=== PATIENT | female | born 2000 | race Caucasian/White ===

== ENCOUNTER 2022-02-27 16:16 | Emergency (ER) | payer OTHER, SELFPAY ==
[2022-02-27 16:30] VITALS: BP 148/74; PULSE 119; RESP 16; TEMP 37.1; O2SAT 97; BMI 38.0
[2022-02-27 16:57] VITALS: BP 131/72; PULSE 117; RESP 16; O2SAT 100
[2022-02-27] MEDS: KETOROLAC 30 MG/ML VIAL 15 MG IM (17:14)
--- NOTE | 2022-02-27 17:15 | ED.PEDHENT ---
HPI - Pediatric HENT <JAMIE Patten - Last Filed: 02/28/22 14:31> General Chief complaint: Upper Respiratory Symptoms Stated complaint: bumps on back of neck, states fever Time Seen by Provider: 02/27/22 16:57 Source: patient Mode of arrival: Ambulatory History of Present Illness HPI Narrative: This is a 21-year-old female who presents to the emergency department with her mother with concern for strep throat with fever. Patient states that she has a history of strep throat in the past, states that one month ago she had it and was encouraged to try salt water rinses and go to the emergency department if she develops a fever. She developed a fever today of 102F. She denies any nausea, vomiting, dysuria, abdominal pain, or any other symptom. She states that her symptoms fully resolved over the last month, and her sore throat started yesterday. Patient states that she took a COVID test this morning and was negative. She denies any shortness of breath, cough, ear pain, runny nose, or any other symptoms. She states that she is had multiple strep throat infections in the past. She sees a primary care provider on the [employer] [address] [employer] [place] and does not know their name. Related Data Previous Rx's Medication Instructions Recorded benzocaine 15 mg-menthol 3.6 mg 1 wayne mucous membrane Q2-4H PRN 02/27/22 lozenges (Cepacol Sore Throat sore throat #16 ea (benzocaine-menthol)) Allergies Allergy/AdvReac Type Severity Reaction Status Date / Time No Known Drug Allergies Allergy Verified 02/27/22 16:35 Patient History <JAMIE Patten - Last Filed: 02/28/22 14:31> Social History Smoking Status: Never smoker Smoking Status: Never smoker alcohol intake frequency: 0-2 drinks per day Substance Use Type: does not use Pediatric Exam <JAMIE Patten - Last Filed: 02/28/22 14:31> Narrative Physical exam: Independently reviewed vitals signs and nursing notes. General: cooperative, comfortable, in no acute distress, well groomed Head: atraumatic, symmetrical facial expressions Neck: supple Eyes: equal round and reactive, EOMI, conjunctiva normal Nose: nares patent, no rhinorrhea Mouth/Throat: moist mucus membranes, posterior pharynx with significant tonsillar adenopathy, 2- 3+, exudates present, erythematous posterior pharynx Cardiovascular: Tachycardic rate and rhythm, patient is febrile, no peripheral edema, warm extremities Respiratory: normal effort, able to speak in complete sentences, no audible wheezing, stridor, or rales. No retractions or tachypnea. GI: abdomen soft, nontender to palpation, nondistended, no masses, no exquisite tenderness with exam, without guarding or rebound. MSK: moves all extremities, neurovascularly intact, no weakness, normal tone Skin: brisk capillary refill, no rash, no erythema Neuro: normal speech and cognition, A&O x3 Psych: mental status is grossly normal, congruent mood, normal affect, pleasant and cooperative Initial Vital Signs Initial Vital Signs: Vital Signs Temperature 98.7 F 02/27/22 16:30 Pulse Rate 119 H 02/27/22 16:30 Respiratory Rate 16 02/27/22 16:30 Blood Pressure 148/74 H 02/27/22 16:30 Pulse Oximetry 97 02/27/22 16:30 Oxygen Delivery Method 02/27/22 16:30 General Limitations: no limitations <Mayur Gtz DO - Last Filed: 02/28/22 18:22> Initial Vital Signs Initial Vital Signs: Vital Signs Temperature 98.7 F 02/27/22 16:30 Pulse Rate 119 H 02/27/22 16:30 Respiratory Rate 16 02/27/22 16:30 Blood Pressure 148/74 H 02/27/22 16:30 Pulse Oximetry 97 02/27/22 16:30 Oxygen Delivery Method 02/27/22 16:30 Course <JAMIE Patten - Last Filed: 02/28/22 14:31> Orders Ordered: Discontinued Medications Acetaminophen (Acetaminophen Susp 650 Mg/20.3 Ml Udc) 650 mg PO NOW ONE Stop: 02/27/22 17:07 Last Admin: 02/27/22 17:18 Dose: 650 mg Documented By: NR Dexamethasone (Dexamethasone 10 Mg/Ml Vial) 10 mg PO NOW ONE Stop: 02/27/22 17:07 Last Admin: 02/27/22 17:19 Dose: 10 mg Documented By: NR Ketorolac Tromethamine (Ketorolac 30 Mg/Ml Vial) 15 mg IM NOW ONE Stop: 02/27/22 17:07 Last Admin: 02/27/22 17:14 Dose: 15 mg Documented By: NR Penicillin G Benzathine (Penicillin G Benzathine 1,200,000 Unit/2 Ml Syringe) 1,200,000 unit IM NOW ONE Stop: 02/27/22 17:07 Last Admin: 02/27/22 17:20 Dose: 1,200,000 unit Documented By: NR Vital Signs Vital signs: Vital Signs - 8 hr 02/27/22 16:30 02/27/22 16:57 02/27/22 17:24 Temperature 98.7 F Pulse Rate 119 H 117 H 110 H Respiratory Rate 16 16 18 Blood Pressure 148/74 H 131/72 116/65 Pulse Oximetry 97 100 100 Oxygen Delivery Method Room Air Room Air <Mayur Gtz DO - Last Filed: 02/28/22 18:22> Orders Ordered: Discontinued Medications Acetaminophen (Acetaminophen Susp 650 Mg/20.3 Ml Udc) 650 mg PO NOW ONE Stop: 02/27/22 17:07 Last Admin: 02/27/22 17:18 Dose: 650 mg Documented By: NR Dexamethasone (Dexamethasone 10 Mg/Ml Vial) 10 mg PO NOW ONE Stop: 02/27/22 17:07 Last Admin: 02/27/22 17:19 Dose: 10 mg Documented By: NR Ketorolac Tromethamine (Ketorolac 30 Mg/Ml Vial) 15 mg IM NOW ONE Stop: 02/27/22 17:07 Last Admin: 02/27/22 17:14 Dose: 15 mg Documented By: NR Penicillin G Benzathine (Penicillin G Benzathine 1,200,000 Unit/2 Ml Syringe) 1,200,000 unit IM NOW ONE Stop: 02/27/22 17:07 Last Admin: 02/27/22 17:20 Dose: 1,200,000 unit Documented By: NR Vital Signs Vital signs: Vital Signs - 8 hr 02/27/22 16:30 02/27/22 16:57 02/27/22 17:24 Temperature 98.7 F Pulse Rate 119 H 117 H 110 H Respiratory Rate 16 16 18 Blood Pressure 148/74 H 131/72 116/65 Pulse Oximetry 97 100 100 Oxygen Delivery Method Room Air Room Air Medical Decision Making <Lori Claros, [employer] OPERATOR - Last Filed: 02/28/22 14:31> Lab Data Labs: Lab Results 02/27/22 Range/Units 16:37 SARS-CoV-2 (PCR) Negative (Negative) Point of Care Testing Rapid Strep A Negative Point of care testing: Point of Care Testing Rapid Strep A Negative MDM Narrative Medical decision making narrative: This is a pleasant 21-year-old female presents to the emergency department with concern for strep throat with swelling and pain in her throat for the last 1.5 days and a history of strep throat infections, last one was one month ago. Patient denies any symptoms in between infections, states that she tried gargling salt water and today she developed a fever of 102 F. she denies any difficulty swallowing or breathing, denies any history of mono, denies any significant fatigue, headache, shortness of breath, chest pain, abdominal pain, dysuria, or any other symptoms. Her rapid group a strep test was negative, throat culture was obtained and is pending. Her COVID test this morning and her PCR this afternoon are both negative. This is most likely pharyngitis of a bacterial origin, patient was treated in the emergency department with penicillin G, 1.2 million units, Decadron 10 mg, Toradol, and encouraged to stay hydrated over the next few days. They were given contact information for Dr. Duckworth to follow-up with for future tonsillectomy. They are given strict return precautions, she reports feeling much better, was also given Tylenol in the emergency department. She was febrile when she checked in, she was tolerating p.o., does not have any swallowing difficulties. No stridor. Appropriate Testing for Patients with Pharyngitis x[] The patient has acute pharyngitis/tonsillitis. The patient was prescribed antibiotics today and a strep test or culture was performed. [SATISFIES MIPS PERFORMANCE] Patient is appropriate and amenable to discharge home. Vital signs are stable on repeat examination is unremarkable. Patient has been informed of results. Patient has been given strict return to ER precautions for any new or worsening symptoms. Patient understands to follow up closely with outpatient providers as instructed. Patient understands plan and agrees to discharge home. All questions and concerns answered at this time. <Mayur Gtz DO - Last Filed: 02/28/22 18:22> Lab Data Labs: Lab Results 02/27/22 Range/Units 16:37 SARS-CoV-2 (PCR) Negative (Negative) Point of Care Testing Rapid Strep A Negative Point of care testing: Point of Care Testing Rapid Strep A Negative Discharge Plan Departure Patient Disposition: Home Clinical Impression: Pharyngitis Qualifiers: Pharyngitis/tonsillitis etiology: unspecified etiology Qualified Code(s): J02.9 - Acute pharyngitis, unspecified Instructions: DI for Pharyngitis/Tonsillopharyngitis -- Adult, DI for Strep Throat Activity Restrictions/Additional Instructions: *You have been diagnosed with pharyngitis and tonsillitis, this is likely strep throat of another variation. You can follow-up with Dr. Duckworth [place] are not getting better in the next 2-3 days. We will call you in two days if your antibiotic you received today is not adequate for the bacteria in your throat. We will call youif you are COVID positive, please continue to take ibuprofen every 6 hours /600 mg starting tomorrow with food and water. Please stay hydrated, drink plenty of water, take Tylenol 650 mg in addition to ibuprofen for fever. This antibiotic will fully treat the bacteria in her throat if this is strep. Thank you for trusting us with your care, hope you feel better soon. Please return to the emergency department if you are having difficulty swallowing, not breathing well, worsening swelling, or vomiting. I wish you the best. *What to do: *Please continue to take your regular medications as directed. [x ] New medication prescriptions sent to your pharmacy: [DOD ] [ ] New medication written as a paper prescription [ ] No new medications given *Please follow up with your primary care provider in 2-3 days, call for an appointment. Let them know you were seen in the Emergency Department and that we asked that you be seen for follow-up. We will electronically transmit a record of today's note if your PCP is in our system *If you do not have a primary care provider please contact [phone] to establish care with one of the [facility] primary care providers. *Return to Emergency Department if you should have any new, worsening or concerning symptoms, such as [fever greater than 101F, chills, worsening pain, persistent vomiting or other bothersome symptoms] Prescriptions: New Cepacol Sore Throat (meseret-men) 15-3.6 mg lozenge 1 wayne mucous membrane Q2-4H PRN (Reason: sore throat) Qty: 16 0RF Referrals: Mihir Duckworth MD [Physician] - Visit Report Forms: Patient Portal/API <Mayur Gtz DO - Last Filed: 02/28/22 18:22> Cosign ED Attending Costawandaature Attestation: I was immediately available in the department for consultation. Documentation has been reviewed. I agree with assessment and plan.
[2022-02-27] MEDS: ACETAMINOPHEN SUSP 650 MG/20.3 ML UDC PO (17:18)
[2022-02-27] MEDS: DEXAMETHASONE 10 MG/ML VIAL PO (17:19)
[2022-02-27] MEDS: PENICILLIN G BENZATHINE 1,200,000 UNIT/2 ML SYRINGE 1200000 UNIT IM (17:20)
[2022-02-27 17:23] LABS: COVID19 -Nasal RAPID Negative (Negative)
[2022-02-27 17:24] VITALS: BP 116/65; PULSE 110; RESP 18; O2SAT 100
== END 2022-02-27 17:46 | disposition home or self-care (01) ==
PROVIDERS: Emergency Medicine; Emergency Provider Nurse Practitioner Critical Care Medicine
DX: J02.9 Acute pharyngitis, unspecified (principal); Z20.822 Contact with and (suspected) exposure to COVID-19
CPT/HCPCS: 87070; 87077; 87147; 87635; 87880; 96372; 99283; C9803; J0561; J1100; J1885

== ENCOUNTER 2022-06-21 12:22 | Emergency (ER) | payer OTHER, SELFPAY ==
[2022-06-21] VITALS (11 sets, daily range): BP systolic 110–129; BP diastolic 56–80; PULSE 62–83; RESP 15–18; TEMP 36.8; O2SAT 95–100; BMI 37.2
--- NOTE | 2022-06-21 13:05 | ED_ITS ---
HPI - Female Genitourinary <JAMIE Patten - Last Filed: 06/21/22 15:32> General Chief complaint: Vaginal Bleeding Stated complaint: Unusually Painful Period Time Seen by Provider: 06/21/22 12:39 Source: patient Mode of arrival: Ambulatory History of Present Illness HPI Narrative: This is a 22-year-old female who is not on contraception and presents to the emergency department complaining of unusually painful and heavier menses than typical. States that she has regular periods, her most recent 1 was of April beginning may. She states that is possible she could be , she denies any abnormal vaginal discharge other than heavy menstrual bleeding. She states that it started yesterday and she went through 3 tampons in 1 hour today. She endorses having a runny nose, cough, sore throat for the last 3 days. States that she had diarrhea and vomiting 1 week ago. Has not taken any COVID tests. Primary care provider is on the [employer]. She is COVID vaccinated, states she is not flu vaccinated. She complains of suprapubic cramping primarily central. She denies any bowel changes this week. Related Data Previous Rx's Medication Instructions Recorded cetirizine 10 mg tablet (24Hour 10 mg PO BEDTIME PRN congestion 06/21/22 Allergy) #20 tabs ketorolac 10 mg tablet 10 mg PO TID PRN pain 5 days #20 06/21/22 tabs Allergies Allergy/AdvReac Type Severity Reaction Status Date / Time No Known Drug Allergies Allergy Verified 06/21/22 14:52 Review of Systems <JAMIE Patten - Last Filed: 06/21/22 15:32> Review of Systems Narrative: Review of systems is negative for acute abnormalities unless otherwise noted in HPI Patient History <JAMIE Patten - Last Filed: 06/21/22 15:32> alcohol intake frequency: 0-2 drinks per day Substance Use Type: does not use Exam <JAMIE Patten Last Filed: 06/21/22 15:32> Narrative Exam Narrative: Reviewed vitals signs and nursing notes. General: cooperative, comfortable, elevated BMI of 37, in no acute distress, well groomed HEENT: symmetrical facial expressions, moist mucous membranes Cardiovascular: regular rate and rhythm, no peripheral edema, warm extremities Respiratory: normal effort, able to speak in complete sentences, without wheezing, stridor, or abnormal breath sounds. No retractions or tachypnea. GI: abdomen soft, nontender to palpation, nondistended, without masses, rebound tenderness or exquisite tenderness with exam. Education Adviser: Pelvic exam completed with Naina ELIZABETH as senior software qa engineer, dark red blood with mucus coming out of cervical os without foreign body in the vaginal canal, cervicitis, or other abnormal vaginal discharge, patient had right adnexal tenderness no tenderness over the left MSK: moves all extremities, neurovascularly intact, no weakness, normal tone Skin: brisk capillary refill, without pallor or erythema Neuro: normal speech and cognition, A&O x3, ambulatory, clear speech Psych: mental status is grossly normal, congruent mood, normal affect, pleasant and cooperative Initial Vital Signs Initial Vital Signs: Vital Signs Pulse Rate 75 06/21/22 12:33 Pulse Oximetry 97 06/21/22 12:33 <Urszula Lynn DO - Last Filed: 06/22/22 08:49> Initial Vital Signs Initial Vital Signs: Vital Signs Pulse Rate 75 06/21/22 12:33 Pulse Oximetry 97 06/21/22 12:33 Course <JAMIE Patten - Last Filed: 06/21/22 15:32> Orders Ordered: Discontinued Medications Acetaminophen (Acetaminophen 325 Mg Tablet) 975 mg PO NOW ONE Stop: 06/21/22 12:41 Last Admin: 06/21/22 13:27 Dose: 975 mg Documented By: NR Sodium Chloride (Normal Saline 0.9%) 1,000 mls @ 1,000 mls/hr IV BOLUS ONE Stop: 06/21/22 14:03 Last Infusion: 06/21/22 14:30 Dose: 0 mls/hr Documented By: Admin: 06/21/22 13:27 Dose: 1,000 mls/hr Documented By: NR Ketorolac Tromethamine (Ketorolac 30 Mg/Ml Vial) 15 mg IV NOW ONE Stop: 06/21/22 13:05 Last Admin: 06/21/22 13:27 Dose: 15 mg Documented By: NR Ondansetron HCl (Ondansetron 4 Mg/2 Ml Inj) 4 mg IV NOW ONE Stop: 06/21/22 13:05 Last Admin: 06/21/22 13:27 Dose: 4 mg Documented By: NR Oxycodone HCl (Oxycodone Ir 5 Mg Tablet) 5 mg PO NOW ONE Stop: 06/21/22 15:16 Vital Signs Vital signs: Vital Signs - 8 hr 06/21/22 12:40 06/21/22 12:33 06/21/22 12:34 Temperature 98.3 F Pulse Rate 75 75 73 Respiratory Rate 18 Blood Pressure 129/80 Pulse Oximetry 98 97 98 Oxygen Delivery Method Room Air 06/21/22 12:34 06/21/22 13:00 06/21/22 13:36 Temperature Pulse Rate 71 Respiratory Rate Blood Pressure 129/80 Pulse Oximetry 95 97 Oxygen Delivery Method 06/21/22 13:38 06/21/22 13:38 06/21/22 14:00 Temperature Pulse Rate 62 Respiratory Rate Blood Pressure 115/62 118/70 Pulse Oximetry 97 Oxygen Delivery Method 06/21/22 14:00 06/21/22 14:30 06/21/22 14:44 Temperature Pulse Rate 74 65 83 Respiratory Rate 15 Blood Pressure Pulse Oximetry 100 100 99 Oxygen Delivery Method Room Air 06/21/22 14:47 Temperature Pulse Rate Respiratory Rate Blood Pressure 110/56 L Pulse Oximetry Oxygen Delivery Method <Urszula Lynn, - Last Filed: 06/22/22 08:49> Orders Ordered: Discontinued Medications Acetaminophen (Acetaminophen 325 Mg Tablet) 975 mg PO NOW ONE Stop: 06/21/22 12:41 Last Admin: 06/21/22 13:27 Dose: 975 mg Documented By: DARRYL Sodium Chloride (Normal Saline 0.9%) 1,000 mls @ 1,000 mls/hr IV BOLUS ONE Stop: 06/21/22 14:03 Last Infusion: 06/21/22 14:30 Dose: 0 mls/hr Documented By: Admin: 06/21/22 13:27 Dose: 1,000 mls/hr Documented By: DARRYL Ketorolac Tromethamine (Ketorolac 30 Mg/Ml Vial) 15 mg IV NOW ONE Stop: 06/21/22 13:05 Last Admin: 06/21/22 13:27 Dose: 15 mg Documented By: DARRYL Ondansetron HCl (Ondansetron 4 Mg/2 Ml Inj) 4 mg IV NOW ONE Stop: 06/21/22 13:05 Last Admin: 06/21/22 13:27 Dose: 4 mg Documented By: NR Oxycodone HCl (Oxycodone Ir 5 Mg Tablet) 5 mg PO NOW ONE Stop: 06/21/22 15:16 Vital Signs Vital signs: Vital Signs - 8 hr 06/21/22 12:40 06/21/22 12:33 06/21/22 12:34 Temperature 98.3 F Pulse Rate 75 75 73 Respiratory Rate 18 Blood Pressure 129/80 Pulse Oximetry 98 97 98 Oxygen Delivery Method Room Air 06/21/22 12:34 06/21/22 13:00 06/21/22 13:36 Temperature Pulse Rate 71 Respiratory Rate Blood Pressure 129/80 Pulse Oximetry 95 97 Oxygen Delivery Method 06/21/22 13:38 06/21/22 13:38 06/21/22 14:00 Temperature Pulse Rate 62 Respiratory Rate Blood Pressure 115/62 118/70 Pulse Oximetry 97 Oxygen Delivery Method 06/21/22 14:00 06/21/22 14:30 06/21/22 14:44 Temperature Pulse Rate 74 65 83 Respiratory Rate 15 Blood Pressure Pulse Oximetry 100 100 99 Oxygen Delivery Method Room Air 06/21/22 14:47 Temperature Pulse Rate Respiratory Rate Blood Pressure 110/56 L Pulse Oximetry Oxygen Delivery Method MDM - Female Genitourinary <JAMIE Patten - Last Filed: 06/21/22 15:32> Lab Data Result diagrams: 06/21/22 13:17 06/21/22 13:17 Labs: Lab Results 06/21/22 06/21/22 06/21/22 Range/Units 12:35 13:17 13:17 WBC 11.5 H (4.5-11.0) X10^3/uL RBC 4.91 (4.0-5.2) X10^6/uL Hgb 10.1 L (12.0-16.0) g/dL Hct 32.5 L (36-46) % MCV 66.3 L (80-100) fL MCH 20.5 L (26-34) PG MCHC 31.0 (30-36) % RDW 17.3 H (11.6-14.8) % Plt Count 489 H (150-400) X10^3/uL Neut % (Auto) 73.6 (50-75) % Lymph % (Auto) 19.6 L (25-40) % [place] % (Auto) 4.8 (3-14) % Eos % (Auto) 1.2 L (2-4) % Baso % (Auto) 0.8 (0-2) % Neut # (Auto) 8500 H (7220-8323) /uL Lymph # (Auto) 2300 (9942-0316) /uL [place] # (Auto) 500 (0-900) /uL Eos # (Auto) 100 (0-450) /uL Baso # (Auto) 100 (0-100) /uL RBC Morphology Not Reportable Microcytosis 3+ H Sodium 138 (137-145) mmol/L Potassium 3.6 (3.4-5.1) mmol/L Chloride 103 (98-107) mmol/L Carbon Dioxide 28 (22-32) mmol/L BUN 10 (7-17) mg/dL Creatinine 0.61 (0.52-1.04) mg/dL Estimated GFR > 60 (>60) mL/min BUN/Creatinine Ratio 16.4 (6-22) Glucose 110 H (70-100) mg/dL Calcium 9.1 (8.4-10.2) mg/dL Total Bilirubin 0.1 L (0.2-1.3) mg/dL AST 38 H (14-36) IU/L ALT 49 H (<35) IU/L Alkaline Phosphatase 90 (38-126) U/L Total Protein 7.3 (6.3-8.2) g/dL Albumin 4.0 (3.5-5.0) g/dL Globulin 3.3 (1.7-4.1) g/dL Albumin/Globulin Ratio 1.2 (1.0-2.8) Lipase 109 (23-300) U/L TSH (0.47-4.68) uIU/mL HCG, Quant < 2.4 mIU/mL Urine RBC 1-5/hpf (0-5/HPF) Urine WBC None seen (0-5/HPF) Ur Squamous Epith Cells 5-10 /hpf H (0-5/HPF) Urine Bacteria None seen (None) Urine Mucus 2+ H (Negative) Ur Culture Indicated? Cult not indicated SARS-CoV-2 (PCR) (Negative) Influenza A (RT-PCR) (NEGATIVE) Influenza B (RT-PCR) (NEGATIVE) RSV (PCR) (Negative) 06/21/22 06/21/22 Range/Units 13:17 13:51 WBC (4.5-11.0) X10^3/uL RBC (4.0-5.2) X10^6/uL Hgb (12.0-16.0) g/dL Hct (36-46) % MCV (80-100) fL MCH (26-34) PG MCHC (30-36) % RDW (11.6-14.8) % Plt Count (150-400) X10^3/uL Neut % (Auto) (50-75) % Lymph % (Auto) (25-40) % [place] % (Auto) (3-14) % Eos % (Auto) (2-4) % Baso % (Auto) (0-2) % Neut # (Auto) (5053-9946) /uL Lymph # (Auto) (8458-1986) /uL [place] # (Auto) (0-900) /uL Eos # (Auto) (0-450) /uL Baso # (Auto) (0-100) /uL RBC Morphology Microcytosis Sodium (137-145) mmol/L Potassium (3.4-5.1) mmol/L Chloride (98-107) mmol/L Carbon Dioxide (22-32) mmol/L BUN (7-17) mg/dL Creatinine (0.52-1.04) mg/dL Estimated GFR (>60) mL/min BUN/Creatinine Ratio (6-22) Glucose (70-100) mg/dL Calcium (8.4-10.2) mg/dL Total Bilirubin (0.2-1.3) mg/dL AST (14-36) IU/L ALT (<35) IU/L Alkaline Phosphatase (38-126) U/L Total Protein (6.3-8.2) g/dL Albumin (3.5-5.0) g/dL Globulin (1.7-4.1) g/dL Albumin/Globulin Ratio (1.0-2.8) Lipase (23-300) U/L TSH 0.770 (0.47-4.68) uIU/mL HCG, Quant mIU/mL Urine RBC (0-5/HPF) Urine WBC (0-5/HPF) Ur Squamous Epith Cells (0-5/HPF) Urine Bacteria (None) Urine Mucus (Negative) Ur Culture Indicated? SARS-CoV-2 (PCR) Negative (Negative) Influenza A (RT-PCR) Flu a negative (NEGATIVE) Influenza B (RT-PCR) Flu b negative (NEGATIVE) RSV (PCR) Negative (Negative) Point of Care Testing Test Results Negative Urine Dip Bedside Urine Glucose Negative Bedside Urine Bilirubin - Negative Bedside Urine Ketone - Negative Urine Specific [place] 1.030 Bedside Urine Occult Blood ++ Bedside Urine pH 6.0 Bedside Urine Protein - Negative Bedside Urine Urobilinogen - Negative Bedside Urine Nitrite - Negative Bedside Urine Leukocytes - Negative Esterase Imaging Data US - [facility]: Radiologist's Impression: [address] [address] Ultrasound Report Signed Patient: Jane Lo MR#: [id number] : 2000 Acct:[id number] Age/Sex: 22 / F Date of Service: 06/21/22 Loc: ED Accession Number: [id number] ?? Procedure: US pelvic complete Ordering Provider: Lori Claros PROCEDURE:? US PELVIC COMPLETE ? INDICATIONS:? menorrhagia ? TECHNIQUE:? Real-time scanning was performed of the pelvic organs, with image documentation .? Additional endovaginal scanning was necessary due to incomplete visualization of the adnexal and endometrial structures by transabdominal scanning.? ? COMPARISON:? None. ? FINDINGS:? ?? Uterus:? Uterus is anteverted and normal in size at 6.9 x 3.5 x 3.9 cm. The myometrium is homogeneous. ? The endometrium measures 6 mm combined thickness.? Mild heterogeneity is seen along the endometrial stripe, yet without masses seen.? No fibroids are seen. ? Ovaries:? The right ovary measures 2.6 x 1.9 x 2 point cm, with a calculated ovarian volume of 7.1 cc. The left ovary measures 2.8 x 2.3 x 2 cm, with a calculated ovarian volume of 6.7 cc. The ovaries have a normal sonographic appearance. Less than 12 follicles can be seen in each ovary.? No adnexal masses are seen. Normal appearing arterial waveforms are confirmed to each ovary.? ? Other:? No pathologic free abdominal or pelvic fluid. ? ? IMPRESSION:? Pelvic ultrasound within normal limits, without a significant abnormality identified. ? ? We strive to produce accurate, complete, and clear reports of imaging services. To assist us in improving patient care, this report was composed using standard report templates and voice recognition software. Therefore, it may contain abnormal punctuation, insertions and/or omissions. Occasional wrong-word or sound-alike substitutions may occur. Though we review the report and make efforts to correct it, we do recommend that the report be read carefully in proper context to recognize any text jacquelyn ccuracies. ? ? Dictated by: Kieran Huynh M.D. on 06/21/2022 at 13:37 ? ? Approved by: Kieran Huynh M.D. on 06/21/2022 at 13:38 ? MDM Narrative Medical decision making narrative: 22-year-old female who presents to the emergency department on day 2 of her regular menses. She is not on contraception currently, endorses heavy, regular menses at baseline. Today her lab work reflects a mild leukocytosis of 11.5, appearance iron-deficiency anemia on her CBC, hemoglobin of 10.1, hematocrit 32.5, MCV of 66.3 and MCH of 20.5 with microcytosis 3+. Mild thrombocytosis with a platelet count of 49, no electrolyte abnormalities, TSH of 0.77, hCG via serum was less than 2.4. UA is negative for infection, patient has had upper respiratory cough, congestion and sore throat for the last 3 days, her COVID PCR is negative, influenza a, B, RSV PCR also negative. Patient endorses she had nausea and vomiting last week, states the symptoms improved and she has ongoing congestion. Pelvic ultrasound is within normal limits, no pathologic free abdominal or pelvic fluid, normal arterial waveforms to bilateral ovaries with no fibroids and an endometrium measuring 6 mm. Only comment is mild heterogeneity seen along the endometrial stripe without masses. Pelvic exam was completed by myself with a senior software qa engineer, she does have blood and mucus coming from her os without significant bleeding, cervicitis or foreign body. Patient's pain and symptoms improved with Toradol, Tylenol, Zofran and oxycodone. Recommend follow-up with OBGYN, for menorrhagia and dysmenorrhea. Recommended iron supplement, stool softener as needed, suggested MiraLax, follow-up with PCP, OBGYN potential contraception for patient's menorrhagia. Differential diagnosis considered include: Malignancy, primary dysmenorrhea, viral illness, uterine fibroids, endometrial polyp/endometriosis, PID, cystitis, cervicitis, ectopic . Patient is appropriate and amenable to discharge home. Vital signs are stable on repeat examination is unremarkable. Patient has been informed of results. Patient has been given strict return to ER precautions for any new or worsening symptoms. Patient understands to follow up closely with outpatient providers as instructed. Patient understands plan and agrees to discharge home. All questions and concerns answered at this time. <Urszula Lynn, DO - Last Filed: 06/22/22 08:49> Lab Data Labs: Lab Results 06/21/22 06/21/22 06/21/22 Range/Units 12:35 13:17 13:17 WBC 11.5 H (4.5-11.0) X10^3/uL RBC 4.91 (4.0-5.2) X10^6/uL Hgb 10.1 L (12.0-16.0) g/dL Hct 32.5 L (36-46) % MCV 66.3 L (80-100) fL MCH 20.5 L (26-34) PG MCHC 31.0 (30-36) % RDW 17.3 H (11.6-14.8) % Plt Count 489 H (150-400) X10^3/uL Neut % (Auto) 73.6 (50-75) % Lymph % (Auto) 19.6 L (25-40) % [place] % (Auto) 4.8 (3-14) % Eos % (Auto) 1.2 L (2-4) % Baso % (Auto) 0.8 (0-2) % Neut # (Auto) 8500 H (3911-3912) /uL Lymph # (Auto) 2300 (8074-7490) /uL [place] # (Auto) 500 (0-900) /uL Eos # (Auto) 100 (0-450) /uL Baso # (Auto) 100 (0-100) /uL RBC Morphology Not Reportable Microcytosis 3+ H Sodium 138 (137-145) mmol/L Potassium 3.6 (3.4-5.1) mmol/L Chloride 103 (98-107) mmol/L Carbon Dioxide 28 (22-32) mmol/L BUN 10 (7-17) mg/dL Creatinine 0.61 (0.52-1.04) mg/dL Estimated GFR > 60 (>60) mL/min BUN/Creatinine Ratio 16.4 (6-22) Glucose 110 H (70-100) mg/dL Calcium 9.1 (8.4-10.2) mg/dL Total Bilirubin 0.1 L (0.2-1.3) mg/dL AST 38 H (14-36) IU/L ALT 49 H (<35) IU/L Alkaline Phosphatase 90 (38-126) U/L Total Protein 7.3 (6.3-8.2) g/dL Albumin 4.0 (3.5-5.0) g/dL Globulin 3.3 (1.7-4.1) g/dL Albumin/Globulin Ratio 1.2 (1.0-2.8) Lipase 109 (23-300) U/L TSH (0.47-4.68) uIU/mL HCG, Quant < 2.4 mIU/mL Urine RBC 1-5/hpf (0-5/HPF) Urine WBC None seen (0-5/HPF) Ur Squamous Epith Cells 5-10 /hpf H (0-5/HPF) Urine Bacteria None seen (None) Urine Mucus 2+ H (Negative) Ur Culture Indicated? Cult not indicated SARS-CoV-2 (PCR) (Negative) Influenza A (RT-PCR) (NEGATIVE) Influenza B (RT-PCR) (NEGATIVE) RSV (PCR) (Negative) 06/21/22 06/21/22 Range/Units 13:17 13:51 WBC (4.5-11.0) X10^3/uL RBC (4.0-5.2) X10^6/uL Hgb (12.0-16.0) g/dL Hct (36-46) % MCV (80-100) fL MCH (26-34) PG MCHC (30-36) % RDW (11.6-14.8) % Plt Count (150-400) X10^3/uL Neut % (Auto) (50-75) % Lymph % (Auto) (25-40) % [place] % (Auto) (3-14) % Eos % (Auto) (2-4) % Baso % (Auto) (0-2) % Neut # (Auto) (1884-0667) /uL Lymph # (Auto) (0034-9754) /uL [place] # (Auto) (0-900) /uL Eos # (Auto) (0-450) /uL Baso # (Auto) (0-100) /uL RBC Morphology Microcytosis Sodium (137-145) mmol/L Potassium (3.4-5.1) mmol/L Chloride (98-107) mmol/L Carbon Dioxide (22-32) mmol/L BUN (7-17) mg/dL Creatinine (0.52-1.04) mg/dL Estimated GFR (>60) mL/min BUN/Creatinine Ratio (6-22) Glucose (70-100) mg/dL Calcium (8.4-10.2) mg/dL Total Bilirubin (0.2-1.3) mg/dL AST (14-36) IU/L ALT (<35) IU/L Alkaline Phosphatase (38-126) U/L Total Protein (6.3-8.2) g/dL Albumin (3.5-5.0) g/dL Globulin (1.7-4.1) g/dL Albumin/Globulin Ratio (1.0-2.8) Lipase (23-300) U/L TSH 0.770 (0.47-4.68) uIU/mL HCG, Quant mIU/mL Urine RBC (0-5/HPF) Urine WBC (0-5/HPF) Ur Squamous Epith Cells (0-5/HPF) Urine Bacteria (None) Urine Mucus (Negative) Ur Culture Indicated? SARS-CoV-2 (PCR) Negative (Negative) Influenza A (RT-PCR) Flu a negative (NEGATIVE) Influenza B (RT-PCR) Flu b negative (NEGATIVE) RSV (PCR) Negative (Negative) Point of Care Testing Test Results Negative Urine Dip Bedside Urine Glucose Negative Bedside Urine Bilirubin - Negative Bedside Urine Ketone - Negative Urine Specific [place] 1.030 Bedside Urine Occult Blood ++ Bedside Urine pH 6.0 Bedside Urine Protein - Negative Bedside Urine Urobilinogen - Negative Bedside Urine Nitrite - Negative Bedside Urine Leukocytes - Negative Esterase Discharge Plan Departure Patient Disposition: Home Clinical Impression: Dysmenorrhea Iron deficiency anemia Qualifiers: Iron deficiency anemia type: unspecified iron deficiency Qualified Code(s): D50.9 - Iron deficiency anemia, unspecified Menorrhagia Qualifiers: Menorrhagia type: with regular cycle Qualified Code(s): N92.0 - Excessive and frequent menstruation with regular cycle Activity Restrictions/Additional Instructions: *You have been diagnosed with iron deficiency anemia, stable blood counts, dehydration, and an upper respiratory viral infection. Please focus on hydration, take Toradol every 6-8 hours with food and water as needed, take Tylenol in addition to this until your symptoms improve. Please schedule an appointment with 1 of the OBGYN at the next available appointment, today Dr. Miller is on-call, there is also a Dr. Shaikh, and a few other providers in this office. Please follow-up about your heavy menstrual cycle and bleeding. Your ultrasound was normal without any significant abnormality. Ovaries bilaterally have a normal size and appearance, there are no masses, good blood flow, the endometrium is normal and there were no fibroids. Your respiratory panel was negative for COVID, influenza and RSV. I think that you still have a viral respiratory infection going on, your symptoms might be better managed with adding Zyrtec at night, continue with your NSAID and Tylenol for pain, if you have a productive cough you Mucinex. Please start taking an ir on supplement that is well tolerated by you. They tend to make people constipated or cause stomach ache so take it with food and not anything acidic. Please ensure you are eating a healthy diet, please come back if you have worsening of your symptoms. Keep drinking water like you have been,, I hope that this is helpful in you start feeling better soon. *What to do: *Please continue to take your regular medications as directed. [x ] New medication prescriptions sent to your pharmacy: [[facility] ] [ ] New medication written as a paper prescription [ ] No new medications given *Please follow up with your primary care provider in 2-3 days, call for an appointment. Let them know you were seen in the Emergency Department and that we asked that you be seen for follow-up. We will electronically transmit a record of today's note if your PCP is in our system *If you do not have a primary care provider please contact [phone] to establish care with one of the [facility] primary care providers. *Return to Emergency Department if you should have any new, worsening, or concerning symptoms, such as [fever greater than 101F, chills, worsening pain, persistent vomiting or other bothersome symptoms]. Prescriptions: New ketorolac 10 mg tablet 10 mg PO TID PRN (Reason: pain) 5 Days Qty: 20 0RF cetirizine [24Hour Allergy] 10 mg tablet 10 mg PO BEDTIME PRN (Reason: congestion) Qty: 20 0RF Referrals: Provider,Bipin WOODY [Primary Care Provider] - Ted Miller MD [Physician] - Visit Report Forms: Patient Portal/API <Urszula Lynn DO - Last Filed: 06/22/22 08:49> Cosign ED Attending Jenniferature Attestation: I was immediately available in the department for consultation. Documentation has been reviewed. I agree with assessment and plan.
--- NOTE | 2022-06-21 13:09 | DI.US.S_ITS ---
PROCEDURE: US PELVIC COMPLETE INDICATIONS: menorrhagia TECHNIQUE: Real-time scanning was performed of the pelvic organs, with image documentation. Additional endovaginal scanning was necessary due to incomplete visualization of the adnexal and endometrial structures by transabdominal scanning. COMPARISON: None. FINDINGS: Uterus: Uterus is anteverted and normal in size at 6.9 x 3.5 x 3.9 cm. The myometrium is homogeneous. The endometrium measures 6 mm combined thickness. Mild heterogeneity is seen along the endometrial stripe, yet without masses seen. No fibroids are seen. Ovaries: The right ovary measures 2.6 x 1.9 x 2 point cm, with a calculated ovarian volume of 7.1 cc. The left ovary measures 2.8 x 2.3 x 2 cm, with a calculated ovarian volume of 6.7 cc. The ovaries have a normal sonographic appearance. Less than 12 follicles can be seen in each ovary. No adnexal masses are seen. Normal appearing arterial waveforms are confirmed to each ovary. Other: No pathologic free abdominal or pelvic fluid. IMPRESSION: Pelvic ultrasound within normal limits, without a significant abnormality identified. We strive to produce accurate, complete, and clear reports of imaging services. To assist us in improving patient care, this report was composed using standard report templates and voice recognition software. Therefore, it may contain abnormal punctuation, insertions and/or omissions. Occasional wrong-word or sound-alike substitutions may occur. Though we review the report and make efforts to correct it, we do recommend that the report be read carefully in proper context to recognize any text inaccuracies. Dictated by: Kieran Huynh M.D. on 06/21/2022 at 13:37 Approved by: Kieran Huynh M.D. on 06/21/2022 at 13:38
[2022-06-21 13:26] LABS: Bacteria Urine None Seen; Culture Indicated Urine Cult Not Indicated; Mucus Urine 2+ (Negative); RBC Urine 1-5/HPF (0-5/HPF); Squamous Epithelial Cell Urine 5-10 /HPF (0-5/HPF); WBC Urine None Seen (0-5/HPF)
[2022-06-21] MEDS: ACETAMINOPHEN 325 MG TABLET 975 MG PO (13:27)
[2022-06-21] MEDS: KETOROLAC 30 MG/ML VIAL 15 MG IV (13:27)
[2022-06-21] MEDS: SODIUM CHLORIDE 0.9% 1,000 ML 1000 ML IV (13:27)
[2022-06-21] MEDS: ONDANSETRON 4 MG/2 ML INJ IV (13:27)
[2022-06-21 13:37] LABS: Add Manual Diff / Slide Review NO; Basophils Absolute Auto 100 /uL (0-100); Basophils Percent Auto 0.8 % (0-2); Eosinophils Absolute Auto 100 /uL (0-450); Eosinophils Percent Auto 1.2 % (2-4); Hematocrit 32.5 % (36-46); Hemoglobin 10.1 g/dL (12.0-16.0); Lymphocytes Absolute Auto 2300 /uL (1100-4500); Lymphocytes Percent Auto 19.6 % (25-40); Mean Corpuscular Hemoglobin 20.5 PG (26-34); Mean Corpuscular Volume 66.3 fL (80-100); Monocytes Absolute Auto 500 /uL (0-900); Monocytes Percent Auto 4.8 % (3-14); Neutrophils Absolute Auto 8500 /uL (1500-7000); Neutrophils Percent Auto 73.6 % (50-75); Platelet Count 489 X10^3/uL (150-400); Red Blood Cell Count 4.91 X10^6/uL (4.0-5.2); Red Cell Distribution Width 17.3 % (11.6-14.8); White Blood Cell Count 11.5 X10^3/uL (4.5-11.0)
[2022-06-21 13:40] LABS: Alanine Aminotransferase 49 IU/L (<35); Albumin Globulin Ratio 1.2 (1.0-2.8); Alkaline Phosphatase 90 U/L (38-126); Aspartate Aminotransferase 38 IU/L (14-36); BUN Creatinine Ratio 16.4 (6-22); Bilirubin Total 0.1 mg/dL (0.2-1.3); Blood Urea Nitrogen 10 mg/dL (7-17); Calcium 9.1 mg/dL (8.4-10.2); Carbon Dioxide 28 mmol/L (22-32); Chloride 103 mmol/L (98-107); Estimated Glomerular Filt Rate > 60 mL/min (>60); Globulin 3.3 g/dL (1.7-4.1); Glucose 110 mg/dL (70-100); HEMOLYSIS < 15 (0-50); Lipase 109 U/L (23-300); Potassium 3.6 mmol/L (3.4-5.1); Sodium 138 mmol/L (137-145); Total Protein 7.3 g/dL (6.3-8.2)
[2022-06-21 13:57] LABS: HCG Quantitative /Beta subunit < 2.4 mIU/mL; Microcytosis 3+
[2022-06-21 14:32] LABS: Influenza A - CEPHEID Flu A NEGATIVE (NEGATIVE); Influenza B - CEPHEID Flu B NEGATIVE (NEGATIVE); Respiratory Syncytial Virus Negative (Negative)
[2022-06-21 15:03] LABS: COVID-19 CEPHEID 4-PLEX PCR Negative (Negative)
== END 2022-06-21 15:39 | disposition home or self-care (01) ==
PROVIDERS: Emergency Provider Nurse Practitioner Critical Care Medicine
DX: N94.6 Dysmenorrhea, unspecified (principal); N92.0 Excessive and frequent menstruation with regular cycle; D50.9 Iron deficiency anemia, unspecified; Z20.822 Contact with and (suspected) exposure to COVID-19
CPT/HCPCS: 0241U; 36415; 76830; 76856; 80053; 81003; 81015; 81025; 83690; 84443; 84702; 85025; 93976; 96361; 96374; 96375; 99284; J1885; J2405

== ENCOUNTER → 2023-11-17 17:31 | Outpatient (CLI) | payer OTHER, SELFPAY ==
[2023-11-17 18:41] LABS: Influenza A - CEPHEID Flu A NEGATIVE (NEGATIVE); Influenza B - CEPHEID Flu B NEGATIVE (NEGATIVE); Respiratory Syncytial Virus Negative (Negative)
[2023-11-17 18:44] LABS: COVID-19 CEPHEID 4-PLEX PCR Negative (Negative)
== END ==
PROVIDERS: Visit Provider Physician Assistant
DX: R05.1 Acute cough (principal)
CPT/HCPCS: 0241U

== ENCOUNTER → 2024-08-25 09:34 | Outpatient (CLI) | payer OTHER, SELFPAY ==
[2024-08-25 09:53] LABS: Add Manual Diff / Slide Review NO; Basophils Absolute Auto 100 /uL (0-100); Basophils Percent Auto 1.3 % (0-2); Eosinophils Absolute Auto 100 /uL (0-450); Eosinophils Percent Auto 1.2 % (2-4); Hematocrit 34.7 % (36-46); Hemoglobin 11.1 g/dL (12.0-16.0); Lymphocytes Absolute Auto 2300 /uL (1100-4500); Lymphocytes Percent Auto 32.5 % (25-40); Mean Corpuscular Hemoglobin 21.9 PG (26-34); Mean Corpuscular Volume 68.4 fL (80-100); Monocytes Absolute Auto 400 /uL (0-900); Monocytes Percent Auto 5.5 % (3-14); Neutrophils Absolute Auto 4100 /uL (1500-7000); Neutrophils Percent Auto 59.5 % (50-75); Platelet Count 451 X10^3/uL (150-400); Red Blood Cell Count 5.08 X10^6/uL (4.0-5.2); Red Cell Distribution Width 17.2 % (11.6-14.8); White Blood Cell Count 6.9 X10^3/uL (4.5-11.0)
[2024-08-25 10:03] LABS: Hemoglobin A1C% w Est Avg Glu 5.3 % (4.0-6.0)
[2024-08-25 10:10] LABS: Anisocytosis 1+
[2024-08-25 10:11] LABS: Microcytosis 2+
[2024-08-25 10:12] LABS: Alanine Aminotransferase 17 IU/L (<35); Albumin 4.2 g/dL (3.5-5.0); Albumin Globulin Ratio 1.4 (1.0-2.8); Alkaline Phosphatase 77 U/L (38-126); Aspartate Aminotransferase 22 IU/L (14-36); BUN Creatinine Ratio 17.9 (6-22); Bilirubin Total 0.4 mg/dL (0.2-1.3); Blood Urea Nitrogen 12 mg/dL (7-17); Calcium 9.8 mg/dL (8.4-10.2); Carbon Dioxide 31 mmol/L (22-32); Chloride 103 mmol/L (98-107); Estimated Glomerular Filt Rate > 60 mL/min (>60); Globulin 2.9 g/dL (1.7-4.1); Glucose 97 mg/dL (70-100); HEMOLYSIS < 15 (0-50); Potassium 4.1 mmol/L (3.4-5.1); Sodium 138 mmol/L (137-145); Total Protein 7.1 g/dL (6.3-8.2)
[2024-08-25 10:29] LABS: Free T4, Direct Thyroxine 1.27 ng/dL (0.78-2.19)
[2024-08-25 10:43] LABS: Thyroid Stimulating Hormone 1.19 uIU/mL (0.47-4.68)
== END ==
LOC: LAB 09:36
PROVIDERS: PCP Family Medicine; Referring Provider Obstetrics & Gynecology; Visit Provider Obstetrics & Gynecology
DX: Z31.69 Encounter for other general counseling and advice on procreation (principal)
CPT/HCPCS: 36415; 80053; 83036; 84439; 84443; 85025

== ENCOUNTER 2024-09-02 21:16 | Emergency (ER) | payer SELFPAY ==
[2024-09-02 21:32] VITALS: BP 125/65; PULSE 89; RESP 18; TEMP 36.3; O2SAT 99; BMI 46.0
[2024-09-02 21:55] LABS: Appearance Urine UA CLEAR; Bilirubin Urine UA NEGATIVE (NEGATIVE); Color Urine UA YELLOW; Glucose Urine UA NEGATIVE (Negative); Ketones Urine UA NEGATIVE (NEGATIVE); Leukocyte Esterase Urine UA NEGATIVE (NEGATIVE); Nitrite Urine UA NEGATIVE (Negative); Occult Blood Urine UA NEGATIVE (Negative); Protein Urine UA NEGATIVE (Negative)
[2024-09-02 22:04] LABS: Urine Volume 10mL (spun); pH Urine UA 7.5 (4.5-8.0)
[2024-09-02 22:06] LABS: Bacteria Urine Moderate (10-30); Mucus Urine 3+ (Negative); RBC Urine 0-1/HPF (0-5/HPF); Squamous Epithelial Cell Urine 10-30 /HPF (0-5/HPF); WBC Urine None Seen (0-5/HPF)
[2024-09-02 22:07] LABS: Culture Indicated Urine Cult Not Indicated
== END 2024-09-03 00:04 | disposition left against medical advice (07) ==
PROVIDERS: Emergency Provider Emergency Medicine; PCP Family Medicine
DX: R10.9 Unspecified abdominal pain (principal)
CPT/HCPCS: 81001; 99281

== ENCOUNTER → 2024-09-10 07:25 | Outpatient (CLI) | payer OTHER, SELFPAY ==
--- NOTE | 2024-09-10 07:26 | DI.US.S_ITS ---
PROCEDURE: US ABDOMEN COMPLETE INDICATIONS: right sided abdominal pain TECHNIQUE: Real-time scanning was performed of the abdominal and retroperitoneal organs, with image documentation. COMPARISON: None. FINDINGS: Liver: Liver is normal in size and homogeneous in echotexture. Mildly hyperechoic liver parenchyma. Gallbladder: No stones, sludge, pericholecystic fluid, or wall thickening. Negative sonographic Spencer sign. Biliary ducts: Intrahepatic bile ducts are non-dilated. Extrahepatic bile duct caliber measures 5 mm. Normal is 6-7 mm or less in diameter, or 10 mm or less post-cholecystectomy. Pancreas: Obscured due to bowel gas. Spleen: Spleen is normal in size at 11.3 cm in the maximal dimension and homogeneous in echotexture. Kidneys: Kidneys are normal in size and echotexture. Right kidney measures 9.4 cm long; left kidney measures 11.0 cm long. No hydronephrosis or nephrolithiasis. No solid masses. Aorta: Visualized aorta is normal in caliber at less than 3 cm. Iliacs: Proximal common iliac arteries are normal in caliber at less than 2.5 cm. IVC: Intrahepatic inferior vena cava is patent. Miscellaneous: No free abdominal fluid. IMPRESSION: 1. Hepatic steatosis versus underlying hepatocellular disease. 2. Otherwise, no acute sonographic abnormality of the abdomen. Dictated by: Deepak Gillette M.D. on 09/12/2024 at 16:17 Approved by: Deepak Gillette M.D. on 09/12/2024 at 16:18
== END ==
PROVIDERS: PCP Family Medicine; Referring Provider Family Medicine; Visit Provider Family Medicine
DX: R10.11 Right upper quadrant pain (principal); R93.5 Abnormal findings on diagnostic imaging of other abdominal regions, including retroperitoneum
CPT/HCPCS: 76700

== ENCOUNTER → 2024-12-14 16:39 | Outpatient (CLI) | payer OTHER, SELFPAY ==
[2024-12-14 17:39] LABS: Add Manual Diff / Slide Review NO; Basophils Absolute Auto 100 /uL (0-100); Basophils Percent Auto 0.9 % (0-2); Eosinophils Absolute Auto 100 /uL (0-450); Eosinophils Percent Auto 0.5 % (2-4); Hematocrit 35.7 % (36-46); Hemoglobin 11.6 g/dL (12.0-16.0); Lymphocytes Absolute Auto 2600 /uL (1100-4500); Mean Corpuscular HGB Conc 32.4 % (30-36); Mean Corpuscular Hemoglobin 22.6 PG (26-34); Mean Corpuscular Volume 69.8 fL (80-100); Monocytes Absolute Auto 600 /uL (0-900); Monocytes Percent Auto 5.6 % (3-14); Neutrophils Absolute Auto 7500 /uL (1500-7000); Platelet Count 411 X10^3/uL (150-400); Red Blood Cell Count 5.12 X10^6/uL (4.0-5.2); Red Cell Distribution Width 17.9 % (11.6-14.8); White Blood Cell Count 10.9 X10^3/uL (4.5-11.0)
[2024-12-14 17:55] LABS: Alanine Aminotransferase 37 IU/L (<35); Albumin 4.2 g/dL (3.5-5.0); Albumin Globulin Ratio 1.6 (1.0-2.8); Alkaline Phosphatase 72 U/L (38-126); Aspartate Aminotransferase 32 IU/L (14-36); BUN Creatinine Ratio 13.5 (6-22); Bilirubin Total 0.3 mg/dL (0.2-1.3); Blood Urea Nitrogen 7 mg/dL (7-17); Calcium 9.9 mg/dL (8.4-10.2); Carbon Dioxide 25 mmol/L (22-32); Chloride 101 mmol/L (98-107); Estimated Glomerular Filt Rate > 60 mL/min (>60); Globulin 2.7 g/dL (1.7-4.1); Glucose 92 mg/dL (70-99); HEMOLYSIS < 15 (0-50); Potassium 4.2 mmol/L (3.4-5.1); Sodium 136 mmol/L (137-145); Total Protein 6.9 g/dL (6.3-8.2)
[2024-12-14 17:59] LABS: Anisocytosis 1+
[2024-12-14 18:00] LABS: Microcytosis 1+
[2024-12-14 18:29] LABS: Hepatitis B Surface Antigen NEGATIVE s/c (NEGATIVE); Rubella Antibody IgG 9.8 IU/mL (>15)
[2024-12-14 18:42] LABS: HIV 1 & 2 Ab/Ag 4th Gen Combo NEGATIVE (NEGATIVE); Hep C Virus Ab w/Reflex Quant NEGATIVE s/c (NEGATIVE)
[2024-12-16 04:39] LABS: RPR Screen Non Reactive (Non Reactive)
[2024-12-16 09:09] LABS: Rubeola Measles IgG 89.9 AU/mL (Immune >16.4); Varicella IgG Antibody Non Reactive (Non Reactive)
[2024-12-16 12:08] LABS: Mumps Virus IgG Antibody 10.3 AU/mL (Immune >10.9)
[2024-12-20 10:09] LABS: Parvovirus B19 IgG 0.1 index (0.0-0.8); Parvovirus B19 IgM 0.1 index (0.0-0.8)
== END ==
PROVIDERS: PCP Family Medicine; Referring Provider Obstetrics & Gynecology; Visit Provider Obstetrics & Gynecology
DX: Z34.00 Encounter for supervision of normal first pregnancy, unspecified trimester (principal); Z68.42 Body mass index [BMI] 45.0-49.9, adult
CPT/HCPCS: 36415; 80053; 80055; 83036; 86644; 86735; 86747; 86762; 86765; 86787; 86803; 86850; 86900; 86901; 87389

== ENCOUNTER → 2024-12-20 07:19 | Outpatient (CLI) | payer OTHER, SELFPAY ==
--- NOTE | 2024-12-20 07:20 | DI.US.S_ITS ---
PROCEDURE: US OB <= 14 WEEKS FETUS INDICATIONS: confirm viability OUTSIDE/PRIOR DATING DATA: Last menstrual period (LMP): 10/10/2024. LMP-based estimated date of delivery (KEI): 07/17/2025. First dating scan (date and location): 12/20/2024. Estimated date of delivery (KEI) from first dating scan: 07/14/2025. TECHNIQUE: Real-time scanning was performed of the fetus, with image documentation and biometric measurements. COMPARISON: None. FINDINGS: Yolk sac not seen. Cardiac motion detected, rate 173 beats per minute. Cervical length is 3.8 cm. Ona-rump length is 3.7 cm, 10 weeks and 4 days. IMPRESSION: Living intrauterine gestation with an ultrasound age of 10 weeks and 4 days. This is consistent with the reported LMP. Cardiac motion is identified. Dictated by: Steve De La Torre M.D. on 12/20/2024 at 12:44 Approved by: Steve De La Torre M.D. on 12/20/2024 at 12:46
== END ==
LOC: US 07:20
PROVIDERS: PCP Family Medicine; Referring Provider Obstetrics & Gynecology; Visit Provider Obstetrics & Gynecology
DX: Z34.01 Encounter for supervision of normal first pregnancy, first trimester (principal); Z3A.10 10 weeks gestation of pregnancy
CPT/HCPCS: 76801; 76817

== ENCOUNTER → 2024-12-24 14:02 | Outpatient (CLI) | payer OTHER, SELFPAY ==
[2024-12-24 15:50] LABS: Natera Collection Specimen Collected
== END ==
PROVIDERS: PCP Family Medicine; Referring Provider Obstetrics & Gynecology; Visit Provider Obstetrics & Gynecology
DX: Z34.81 Encounter for supervision of other normal pregnancy, first trimester (principal)
CPT/HCPCS: 36415

== ENCOUNTER → 2025-01-05 16:42 | Outpatient (CLI) | payer OTHER, SELFPAY ==
[2025-01-05 18:13] LABS: Appearance Urine UA SL CLOUDY; Bilirubin Urine UA NEGATIVE (NEGATIVE); Color Urine UA YELLOW; Glucose Urine UA NEGATIVE (Negative); Ketones Urine UA NEGATIVE (NEGATIVE); Leukocyte Esterase Urine UA 2+ (NEGATIVE); Nitrite Urine UA NEGATIVE (Negative); Occult Blood Urine UA NEGATIVE (Negative); Protein Urine UA NEGATIVE (Negative); Specific Gravity Urine UA 1.025 (1.000-1.035)
[2025-01-05 18:41] LABS: Urine Volume 10mL (spun)
[2025-01-05 18:42] LABS: Amorphous Sediment Urine 2+; Bacteria Urine Many (>30); RBC Urine None Seen (0-5/HPF); Squamous Epithelial Cell Urine 5-10 /HPF (0-5/HPF); Uric Acid Crystals Urine Moderate; WBC Urine 5-10/HPF (0-5/HPF)
== END ==
PROVIDERS: Obstetrics & Gynecology; PCP Family Medicine; Referring Provider Family Medicine; Visit Provider Family Medicine
DX: O26.899 Other specified pregnancy related conditions, unspecified trimester (principal); M54.50 Low back pain, unspecified
CPT/HCPCS: 81001; 87086

== ENCOUNTER → 2025-01-21 07:04 | Outpatient (CLI) | payer OTHER, SELFPAY ==
[2025-01-21 07:59] LABS: Collection Time Urine 24 Hours; Protein (Total) Urine Random 15 mg/dL (0-12); Total Protein 24 Hour Urine 135 mg/day (42-225); Total Volume Urine 900 mL
== END ==
LOC: LAB 07:05
PROVIDERS: PCP Family Medicine; Referring Provider Obstetrics & Gynecology; Visit Provider Obstetrics & Gynecology
DX: O16.9 Unspecified maternal hypertension, unspecified trimester (principal)
CPT/HCPCS: 84156

== ENCOUNTER → 2025-02-17 09:47 | Outpatient (CLI) | payer OTHER, SELFPAY ==
[2025-02-19 21:08] LABS: Gest Age on Col Date 18.6 weeks (.); OSBR Risk 1IN 10000 (.)
[2025-02-21 08:23] LABS: PDF SEE SCANNED REPORTS
== END ==
PROVIDERS: PCP Family Medicine; Referring Provider Family Medicine; Visit Provider Obstetrics & Gynecology
DX: Z34.92 Encounter for supervision of normal pregnancy, unspecified, second trimester (principal); Z3A.18 18 weeks gestation of pregnancy
CPT/HCPCS: 36415; 82105

== ENCOUNTER → 2025-03-02 13:27 | Outpatient (CLI) | payer OTHER, SELFPAY ==
--- NOTE | 2025-03-02 13:28 | DI.US.S_ITS ---
PROCEDURE: US OB >= 14 WEEKS FETUS INDICATIONS: screen for anomaly OUTSIDE/PRIOR DATING DATA: Last menstrual period (LMP): 10/10/24. LMP-based estimated date of delivery (KEI): 07/17/25. First dating scan (date and location): 12/20/24. Estimated date of delivery (KEI) from first dating scan: 07/14/25. The calculations are made using the working KEI of 07/17/25. TECHNIQUE: Real-time scanning was performed of the fetus, with image documentation and biometric measurements. Endovaginal scanning: No COMPARISON: None. FINDINGS: Technically suboptimal exam secondary to maternal body habitus. General: A single living intrauterine gestation is present. Presentation: Breech. Placenta: Placental position is posterior , without previa. Amniotic fluid index: 16.2 cm, normal range is 5-24 cm. Single deepest vertical pocket is 4.7 cm. heart rate: 147 beats per minute. Maternal cervical canal: Closed and 4.0 cm long. Normal lower limit is 2.5 cm. biometrics: Biparietal diameter: 4.9 cm, 20 weeks five days Head circumference: 18.1 cm, 20 weeks four days Abdominal circumference: 16.2 cm, 21 weeks two days Femur length: 3.5 cm, 21 weeks one day Clinically estimated gestational age: 20 weeks three days Composite gestational age from present scan: 21 weeks 0 days Estimated weight and percentile: 404 g, 84th percentile Anatomic survey: Technically decreased quality due to position and maternal body habitus. Neuro: Ventricles are non-dilated at less than 10 mm. Cisterna magna is normal at 3-11 mm. Cerebellum is normal in size but morphology was not well seen. Probable small choroid plexus cyst measuring 8 mm. Nuchal skin fold: Normal at less than 6 mm between 14-21 weeks gestational age. Face: Nose and lips, facial profile are normal. Spine: No evidence for spina bifida. Heart: Not well seen due to lack of good acoustic window. Diaphragm: Diaphragm is intact. Stomach: Left-sided stomach is present. Kidneys: No hydronephrosis. Normal is less than 5 mm in 2nd trimester, less than 7 mm in 3rd trimester. Cord: 3-vessel cord has orthotopic insertion. Bladder: Normal in size. Extremities: All 4 extremities grossly identified. IMPRESSION: Single living intrauterine with estimated weight at the 84th percentile. Symmetric growth in good agreement with the expected gestational age. Technically challenging and suboptimal quality survey of anatomy. Cardiac structures were not well seen. Cerebellar morphology was not well seen. Recommend short-term follow-up, 1-2 weeks. Closed cervix and normal amniotic fluid volume. Posterior placenta. We strive to produce accurate, complete, and clear reports of imaging services. To assist us in improving patient care, this report was composed using standard report templates and voice recognition software. Therefore, it may contain abnormal punctuation, insertions and/or omissions. Occasional wrong-word or sound-alike substitutions may occur. Though we review the report and make efforts to correct it, we do recommend that the report be read carefully in proper context to recognize any text inaccuracies. Dictated by: Josie Gomez M.D. on 03/02/2025 at 18:49 Approved by: Josie Gomez M.D. on 03/02/2025 at 18:55
== END ==
PROVIDERS: PCP Family Medicine; Referring Provider Obstetrics & Gynecology; Visit Provider Emergency Medicine
DX: Z36.89 Encounter for other specified antenatal screening (principal); Z3A.21 21 weeks gestation of pregnancy
CPT/HCPCS: 76811

== ENCOUNTER → 2025-03-28 06:47 | Outpatient (CLI) | payer OTHER, SELFPAY ==
--- NOTE | 2025-03-28 06:48 | DI.US.S_ITS ---
PROCEDURE: US OB FOLLOW UP INDICATIONS: RE-EVAL HRT, CHOROID PLEXUS OUTSIDE/PRIOR DATING DATA: Last menstrual period (LMP): 10/10/2024 LMP-based estimated date of delivery (KEI): 07/17/2025 First dating scan (date and location): 12/20/2024 Estimated date of delivery (KEI) from first dating scan: 07/14/2025 The calculations are made using the clinical KEI of 07/17/2025. TECHNIQUE: Real-time scanning was performed of the fetus, with image documentation. Endovaginal scanning: Not performed. COMPARISON: [facility], OB >= 14 WEEKS FETUS, 03/02/2025, 13:55. FINDINGS: General: A single living intrauterine gestation is present. Presentation: Breech Placenta: Placental position is posterior, without previa. Amniotic fluid index: 19.0 cm, normal range is 5-24 cm. Single deepest vertical pocket is 6.6 cm. heart rate: 153 beats per minute. Maternal cervical canal: 6.0 cm long. Normal lower limit is 2.5 cm. Clinically estimated gestational age: 24 weeks 1 day Other: Right choroid plexus cyst is again seen measuring up to 8 mm. Cerebellum not evaluated. Four-chamber heart is present, but not optimally evaluated due to positioning and rib shadows. Right and left ventricular outflow tracts are again not well visualized. IMPRESSION: 1. Single live intrauterine with breech positioning at 24 weeks 1 day gestational age. 2. Single choroid plexus cyst is seen measuring up to 8 mm in size. 3. Four-chamber heart is present although the right and left ventricular outflow tracts are not optimally visualized, which may be related to positioning. Consider additional follow-up ultrasound versus echocardiogram for further evaluation. Approved by: Cuong Galvan M.D. on 03/28/2025 at 9:42
== END ==
PROVIDERS: PCP Family Medicine; Referring Provider Student in an Organized Health Care Education/Training Program; Visit Provider Student in an Organized Health Care Education/Training Program
DX: O99.210 Obesity complicating pregnancy, unspecified trimester (principal); O35.03X0 Maternal care for (suspected) central nervous system malformation or damage in fetus, choroid plexus cysts, not applicable or unspecified; Z3A.24 24 weeks gestation of pregnancy
CPT/HCPCS: 76816

== ENCOUNTER 2025-05-01 21:53 | Outpatient (CLI) | payer OTHER, SELFPAY ==
--- NOTE | 2025-05-01 22:14 | PM.OBTRLD ---
Visit Information Visit Information Date of evaluation: 05/01/25 Primary OB Provider: Jane Landaverde On-call OB Provider: Rosie Foster Reason for Evaluation: Yes non-stress test Comments/Additional reasons for admission: DFM [facility] Medical History Hypertension affecting Closed head injury General counseling and advice for procreative management Surgical History Anesthesia [place] teeth removed (~03/2020) Family History Father Hypertension Hyperlipidemia Mother Diabetes mellitus Mental health problem Depression Anxiety Insomnia Grandmother Breast cancer Grandfather Cancer Grandfather Hypertension Brother Bipolar disorder Social History marital status: number of children: 0 household members: spouse lives independently: Yes caregiver/support person: No housing: house pets and animals: No education level: college (some college, working on associate's) 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[employer], often substitutes for teachers) current occupational exposures/hazards: No special sharmaine needs: No travel history: recent (domestic only) seatbelt use: always helmet use: Yes water heater temp set < 120 deg: Yes working smoke detector in home: Yes fire extinguisher in home: Yes carbon monox detector in home: Yes firearms in home: No do you feel safe at home: Yes second hand exposure: No alcohol intake: former (rarely when not ) substance use type: marijuana (infrequently, not while /) during the past year weight has: increased > 10 lbs well-balanced diet: about half the time daily servings fruits/ve-4 caffeine: Yes (AM coffee or espresso, aware of 200mg limit) Type(s) of exercise: walking and weight lifting frequency: daily duration: 15-30 minutes/day Review of Systems Review of Systems Narrative: C/o Decreased movement Exam Vital Signs (past 8 hours): BP: 110/60 P:82 Evaluation Evaluation Baseline heart rate: 140 Variability: Moderate (6-25) monitor accelerations: Present (10x10) Monitor Decelerations: Absent Contraction Frequency (minutes): 0 Category of Tracing: Reactive Diagnosis, Plan/Disposition Final Diagnosis (1) Decreased movement: Status: Acute Problem details: Resolved, Reactive NST Plan/Disposition Plan: Discharge home with return precautions OB Disposition: home
== END 2025-05-01 22:50 | disposition home or self-care (01) ==
LOC: LABOR 22:52 → OB 05-02 11:32
PROVIDERS: PCP Family Medicine; Referring Provider Student in an Organized Health Care Education/Training Program; Visit Provider Student in an Organized Health Care Education/Training Program
DX: O36.8130 Decreased fetal movements, third trimester, not applicable or unspecified (principal); Z3A.29 29 weeks gestation of pregnancy
CPT/HCPCS: 59025; G0378; G0379

== ENCOUNTER → 2025-05-10 13:30 | Outpatient (CLI) | payer OTHER, SELFPAY | PROVIDERS: PCP Family Medicine; Visit Provider Obstetrics & Gynecology | DX: R82.998 Other abnormal findings in urine (principal); R80.9 Proteinuria, unspecified | CPT/HCPCS: 87086 ==

== ENCOUNTER → 2025-05-17 | Outpatient (CLI) | payer OTHER, SELFPAY ==
--- NOTE | 2025-05-17 15:58 | DI.US.S_ITS ---
PROCEDURE: US OB FOLLOW UP INDICATIONS: OUTFLOW TRACTS AND CEREBELLUM MORPHOLOGY FOLLOW UP The calculations are made using the working KEI of 07/17/2025. TECHNIQUE: Real-time scanning was performed of the fetus, with image documentation and biometric measurements. Endovaginal scanning: No COMPARISON: [facility], , OB FOLLOW UP, 03/28/2025, 7:13. FINDINGS: General: A single living intrauterine gestation is present. Presentation: Vertex. Placenta: Placental position is posterior , without previa. Amniotic fluid index: 22.2 cm, normal range is 5-24 cm. Single deepest vertical pocket is 8.5 cm. heart rate: 147 beats per minute. Maternal cervical canal: 4.1 cm long. Normal lower limit is 2.5 cm. Clinically estimated gestational age: 31 week 2 day Anatomic survey: Right and left ventricular outflow tracks are well seen and appears normal. The cerebellum and choroid plexus are not well seen. Incidental note is made of left renal caliectasis measuring 7 mm. IMPRESSION: Single live intrauterine consistent with 31 week 2 day gestation by dates. Prominent left renal collecting system, 0.7 cm Right and left ventricular outflow tracks are well seen and normal. Posterior fossa, cerebellum and choroid plexus not well seen due to age. Approved by: Aubrey Rhoades M.D. on 05/18/2025 at 19:09
== END ==
LOC: US 15:58
PROVIDERS: PCP Family Medicine; Referring Provider Obstetrics & Gynecology; Visit Provider Obstetrics & Gynecology
DX: Z34.03 Encounter for supervision of normal first pregnancy, third trimester (principal); Z3A.31 31 weeks gestation of pregnancy
CPT/HCPCS: 76816

== ENCOUNTER 2025-05-25 15:30 | Outpatient (CLI) | payer OTHER, SELFPAY | END 2025-05-25 16:15 | disposition home or self-care (01) | LOC: OB 05-26 09:37 | PROVIDERS: PCP Family Medicine; Referring Provider Obstetrics & Gynecology; Visit Provider Obstetrics & Gynecology | DX: O10.913 Unspecified pre-existing hypertension complicating pregnancy, third trimester (principal); Z3A.32 32 weeks gestation of pregnancy | CPT/HCPCS: 59025; G0378; G0379 ==

== ENCOUNTER 2025-05-31 16:30 | Outpatient (CLI) | payer OTHER, SELFPAY | END 2025-05-31 17:20 | disposition home or self-care (01) | LOC: LABOR 17:21 → OB 06-01 10:49 | PROVIDERS: PCP Family Medicine; Referring Provider Obstetrics & Gynecology; Visit Provider Obstetrics & Gynecology | DX: O10.913 Unspecified pre-existing hypertension complicating pregnancy, third trimester (principal); Z3A.33 33 weeks gestation of pregnancy | CPT/HCPCS: 59025; G0378; G0379 ==

== ENCOUNTER 2025-06-07 16:28 | Outpatient (CLI) | payer OTHER, SELFPAY | END 2025-06-07 17:25 | disposition home or self-care (01) | LOC: LABOR 16:53 → OB 06-08 10:23 | PROVIDERS: PCP Family Medicine; Referring Provider Obstetrics & Gynecology; Visit Provider Obstetrics & Gynecology | DX: O10.913 Unspecified pre-existing hypertension complicating pregnancy, third trimester (principal); Z3A.34 34 weeks gestation of pregnancy | CPT/HCPCS: 59025; G0378; G0379 ==

== ENCOUNTER 2025-06-09 19:33 | Outpatient (CLI) | payer OTHER, SELFPAY ==
[2025-06-09 20:25] LABS: Add Manual Diff / Slide Review NO; Hematocrit 34.4 % (36-46); Hemoglobin 11.4 g/dL (12.0-16.0); Lymphocytes Absolute Auto 2000 /uL (1100-4500); Mean Corpuscular HGB Conc 33.0 % (30-36); Mean Corpuscular Hemoglobin 24.9 PG (26-34); Mean Corpuscular Volume 75.5 fL (80-100); Platelet Count 327 X10^3/uL (150-400)
[2025-06-09] MEDS: fentaNYL 100 MCG/2 ML INJ 50 MCG IV (20:30)
[2025-06-09] MEDS: ONDANSETRON 8 MG in SODIUM CHLORIDE 0.9% 50 ML 216 MG IV (20:34)
[2025-06-09 20:42] LABS: Alanine Aminotransferase 16 IU/L (<35); Albumin 3.4 g/dL (3.5-5.0); Albumin Globulin Ratio 1.0 (1.0-2.8); Alkaline Phosphatase 181 U/L (38-126); Blood Urea Nitrogen 3 mg/dL (7-17); Calcium 9.3 mg/dL (8.4-10.2); Carbon Dioxide 24 mmol/L (22-32); Chloride 104 mmol/L (98-107); Estimated Glomerular Filt Rate > 60 mL/min (>60); Globulin 3.3 g/dL (1.7-4.1); Glucose 97 mg/dL (70-99); HEMOLYSIS < 15 (0-50); Potassium 3.7 mmol/L (3.4-5.1); Sodium 132 mmol/L (137-145); Total Protein 6.7 g/dL (6.3-8.2)
[2025-06-09 22:03] LABS: Appearance Urine UA CLEAR; Bilirubin Urine UA NEGATIVE (NEGATIVE); Color Urine UA YELLOW; Glucose Urine UA NEGATIVE (Negative); Ketones Urine UA 1+ (NEGATIVE); Leukocyte Esterase Urine UA TRACE (NEGATIVE); Nitrite Urine UA NEGATIVE (Negative); Occult Blood Urine UA NEGATIVE (Negative); Protein Urine UA NEGATIVE (Negative); Specific Gravity Urine UA 1.010 (1.000-1.035); Urobilinogen Urine UA 0.2 E.U./dL (0.2)
[2025-06-09 22:13] LABS: pH Urine UA 7.0 (4.5-8.0)
[2025-06-09 22:14] LABS: Culture Indicated Urine Cult Not Indicated
--- OUTSIDE RECORDS SUMMARY | 2025-08-04 14:18 | XMS_ITS | Clinical Summary ---
Author Organization [facility] Address [address] [place] [address] Care Team Providers Care Grape Picker Name Role Phone Gabby Pearce Primary Care Provider Unavail able Source Comments NOTE: The information displayed by Care Everywhere is extracted from the complete medical record and may not identify all current or past patient conditions.[facility] Encounters Date Type Department Care Team Description 06/27/2025 Notes Encounter (No LOS) Care Management [address] [address] Katelyn Steiner LPN Morbid obesity (Primary Dx) 06/25/2025 Telephone Consulting Nurse Services Appointing Center [address] [address] Gabby Pearce Care/Case Management from Last 3 Months Immunizations Immunization Administration Dates Next Due *STANDARD DOSE SYRINGE* (FluARIX,FluLAVAL,FluZONE) (6+ mos) TRI 05/28/2012 DTaP (Diphtheria, Tetanus, a cellular Pertussis) 12/22/2007,08/02/2004,04/05/2003,02/01,2002 Hep B Pediatric (Hepatitis B , 3 Dose Series) 05/28/2012,05/24/2003,03/26/2003,05/20 Hib (PEDVAXHIB,PRP-OMP) 07/04/2004,04/05,02/01/2003,11/23 IPV (Polio) 12/22/2007, 4,02/01/2003,11/23 MMR (Measles, Mumps, Rubella) 12/22/2007, 004 Meningococcal Conjugate Vacc ine (MENACTRA) 03/21/2014 Moderna SARS-CoV-2 Vaccinati on (12 + y/o)(FINAL INSPECTOR AND TESTER) 08/21/2021 Tdap (Tetanus, Diphtheria, a cellular Pertussis) 03/21/2014 Varicella 07/22/2008,05/24/2003 Social History Tobacco Use Types Packs/Day Years Used Date Smoking Tobacco: Never Assessed Comments Unknown Sex and Gender Information Value Date Recorded Sex Assigned at Not on file Legal Sex Female 7:53 AM PST Gender Identity Not on file Sexual Orientation Not on file Plan of Treatment Health Maintenance Due Date Last Done Comments Discuss 1X Lifetime Syphilis Screening 2002 Blood Pressure Check 2002 Adult HIV Screen (1-time) 2017 Vaccine: HPV (1 - 3-dose series) 2017 Hep C Screening (1-time) 2020 Cervical Cancer Screening: Pap 2023 Vaccine: SQvU-Csgt-Ym (7 - T d or Tdap) 03/21/2024 03/21/2014, 12/22/2007, 08/02/2004, Additional history exists FLU VACCINE (#1) 04/18/2025 05/28/2012 Vaccine: COVID-19 ( season) 2025 08/21/2021 Insurance * Guarantor: Jane Miller Account Type Relation to Patient Date of Phone Billing Address Personal/Family Self [address] [place] [address] [facility] Care Teams Grape Picker Relationship Specialty Start Date End Date Gabby Pearce [facility] [address] [facility] [address] [place] [address] PCP - General 01/27/24
== END 2025-06-09 22:44 | disposition home or self-care (01) ==
LOC: LABOR 19:48 → OB 08-04 14:16
PROVIDERS: PCP Family Medicine; Referring Provider Obstetrics & Gynecology; Visit Provider Obstetrics & Gynecology
DX: O10.913 Unspecified pre-existing hypertension complicating pregnancy, third trimester (principal); O23.43 Unspecified infection of urinary tract in pregnancy, third trimester; N39.0 Urinary tract infection, site not specified; O60.03 Preterm labor without delivery, third trimester; Z3A.34 34 weeks gestation of pregnancy
CPT/HCPCS: 36415; 59025; 59050; 80053; 81001; 85025; 87086; 96360; G0378; G0379; J2405; J3010

== ENCOUNTER 2025-06-14 16:27 | Outpatient (CLI) | payer OTHER, SELFPAY | END 2025-06-14 17:15 | disposition home or self-care (01) | LOC: OB 06-15 07:58 | PROVIDERS: PCP Family Medicine; Referring Provider Obstetrics & Gynecology; Visit Provider Obstetrics & Gynecology | DX: O10.913 Unspecified pre-existing hypertension complicating pregnancy, third trimester (principal); Z3A.35 35 weeks gestation of pregnancy | CPT/HCPCS: 59025; G0378; G0379 ==

== ENCOUNTER → 2025-06-15 14:48 | Outpatient (CLI) | payer OTHER, SELFPAY ==
--- NOTE | 2025-06-15 14:49 | DI.US.S_ITS ---
PROCEDURE: US OB LIMITED INDICATIONS: Growth and f/u renal dilation OUTSIDE/PRIOR DATING DATA: Working KEI is 07/17/2025 TECHNIQUE: Real-time scanning was performed of the fetus, with image documentation and biometric measurements. COMPARISON: [facility], , OB FOLLOW UP, 05/17/2025, 16:15. FINDINGS: General: A single living intrauterine gestation is present. Presentation: Vertex. Placenta: Placental position is posterior , without previa. Amniotic fluid index: 22.6 cm, normal range is 5-24 cm. Single deepest vertical pocket is 6.6 cm. heart rate: 133 beats per minute. Maternal cervical canal: Not well seen biometrics: Biparietal diameter: 8.8 cm, 35 weeks and 3 days Head circumference: 31.3 cm, 35 weeks and 1 day Abdominal circumference: 32 weeks and 7 cm 36 weeks and 4 days Femur length: 6.8 cm at 35 weeks and 1 day Clinically estimated gestational age: 35 weeks and 3 days Composite gestational age from present scan: 35 weeks and 4 days Estimated weight and percentile: 2807 g, 63% Other: Left renal pelviectasis again seen at 0.76 cm IMPRESSION: Intrauterine gestation seen with cardiac motion in vertex presentation. MARIELLA is at the upper limit of normal. EFW within normal limits, 63 percentile. Left renal pelviectasis at 0.76 cm (UTD A1). Continued follow-up suggested, including . Dictated by: Steve De La Torre M.D. on 06/16/2025 at 10:24 Approved by: Steve De La Torre M.D. on 06/16/2025 at 10:26
== END ==
LOC: US 14:49
PROVIDERS: PCP Family Medicine; Referring Provider Obstetrics & Gynecology; Visit Provider Obstetrics & Gynecology
DX: O99.891 Other specified diseases and conditions complicating pregnancy (principal); N28.89 Other specified disorders of kidney and ureter; Z3A.35 35 weeks gestation of pregnancy
CPT/HCPCS: 76815

== ENCOUNTER → 2025-06-17 08:51 | Outpatient (CLI) | payer OTHER, SELFPAY ==
[2025-06-18 11:11] LABS: Strep Grp B PCR NEG for Grp B Strep
== END ==
PROVIDERS: PCP Family Medicine; Visit Provider Obstetrics & Gynecology
DX: Z34.00 Encounter for supervision of normal first pregnancy, unspecified trimester (principal); Z3A.35 35 weeks gestation of pregnancy
CPT/HCPCS: 87653

== ENCOUNTER 2025-06-21 16:26 | Outpatient (CLI) | payer OTHER, SELFPAY ==
--- NOTE | 2025-06-21 16:47 | P.TNLD_ITS ---
Visit Information Visit Information Date of evaluation: 06/21/25 Primary OB Provider: Jane Landaverde On-call OB Provider: Juani Schultz Reason for Evaluation: Yes non-stress test non-stress test reason: hypertension/pre-eclampsia Comments/Additional reasons for admission: 25yo at 36w2d here for NST for chronic HTN. Pt reports moderate headache, steadily increasing swelling. No vision changes, RUQ pain. BPs at home have been 130s/80s, higher than usual. She is feeling her baby move. No LOF, vaginal bleeding, contractions. [facility] Medical History Hypertension affecting Closed head injury General counseling and advice for procreative management Surgical History Anesthesia [place] teeth removed (~03/2020) Family History Father Hypertension Hyperlipidemia Mother Diabetes mellitus Mental health problem Depression Anxiety Insomnia Grandmother Breast cancer Grandfather Cancer Grandfather Hypertension Brother Bipolar disorder Social History marital status: number of children: 0 household members: spouse lives independently: Yes caregiver/support person: No housing: house pets and animals: No education level: college occupational status: employed current occupational exposures/hazards: No special sharmaine needs: No travel history: recent seatbelt use: always helmet use: Yes water heater temp set < 120 deg: Yes working smoke detector in home: Yes fire extinguisher in home: Yes carbon monox detector in home: Yes firearms in home: No do you feel safe at home: Yes second hand exposure: No alcohol intake: former substance use type: marijuana during the past year weight has: increased > 10 lbs well-balanced diet: about half the time daily servings fruits/ve-4 caffeine: Yes (AM coffee or espresso, aware of 200mg limit) Type(s) of exercise: walking and weight lifting frequency: daily duration: 15-30 minutes/day Objective Labs 06/21/25 17:16 06/21/25 17:16 Evaluation Evaluation Baseline heart rate: 135 Variability: Moderate (6-25) monitor accelerations: Present Monitor Decelerations: Absent Category of Tracing: Reactive Diagnosis, Plan/Disposition Plan/Disposition Plan: 25yo at 36w2d here for NST for chronic HTN. NST reactive. Pre- eclampsia/HELLP labs normal today. Stable for d/c home with return precautions discussed. OB Disposition: home
[2025-06-21 17:26] LABS: Add Manual Diff / Slide Review NO; Hematocrit 36.5 % (36-46); Hemoglobin 12.0 g/dL (12.0-16.0); Lymphocytes Absolute Auto 2500 /uL (1100-4500); Mean Corpuscular HGB Conc 32.8 % (30-36); Mean Corpuscular Hemoglobin 24.9 PG (26-34); Mean Corpuscular Volume 76.1 fL (80-100); Platelet Count 334 X10^3/uL (150-400)
[2025-06-21 17:37] LABS: Alanine Aminotransferase 15 IU/L (<35); Albumin 3.5 g/dL (3.5-5.0); Albumin Globulin Ratio 1.0 (1.0-2.8); Alkaline Phosphatase 191 U/L (38-126); Blood Urea Nitrogen 5 mg/dL (7-17); Calcium 9.5 mg/dL (8.4-10.2); Carbon Dioxide 21 mmol/L (22-32); Chloride 105 mmol/L (98-107); Estimated Glomerular Filt Rate > 60 mL/min (>60); Globulin 3.6 g/dL (1.7-4.1); Glucose 89 mg/dL (70-99); HEMOLYSIS < 15 (0-50); Potassium 4.0 mmol/L (3.4-5.1); Sodium 132 mmol/L (137-145); Total Protein 7.1 g/dL (6.3-8.2); Uric Acid 3.7 mg/dL (2.5-6.2)
[2025-06-21 17:47] LABS: Protein (Total) Urine Random 22 mg/dL (0-12); Protein Creatinine Ratio Urine 0.22 GRAM/24H
== END 2025-06-21 17:57 | disposition home or self-care (01) ==
LOC: LABOR 16:33 → OB 06-22 08:28
PROVIDERS: PCP Family Medicine; Referring Provider Family Medicine; Visit Provider Family Medicine
DX: O10.913 Unspecified pre-existing hypertension complicating pregnancy, third trimester (principal); Z3A.36 36 weeks gestation of pregnancy
CPT/HCPCS: 36415; 59025; 80053; 84550; 85025; G0378; G0379

== ENCOUNTER 2025-06-25 03:48 | Inpatient (IN) | payer OTHER, SELFPAY ==
[2025-06-25 04:59] VITALS: BP 122/69
[2025-06-25] MEDS: OXYTOCIN PREMIX 30 UNIT/500 ML PLAST..BAG IV (05:28)
[2025-06-25] MEDS: LACTATED RINGERS 1,000 ML 100 ML IV ×2 (05:28→10:30)
[2025-06-25 05:30] LABS: Add Manual Diff / Slide Review NO; Hematocrit 35.7 % (36-46); Hemoglobin 11.8 g/dL (12.0-16.0); Lymphocytes Absolute Auto 2000 /uL (1100-4500); Mean Corpuscular HGB Conc 33.1 % (30-36); Mean Corpuscular Hemoglobin 25.2 PG (26-34); Mean Corpuscular Volume 76.3 fL (80-100); Platelet Count 311 X10^3/uL (150-400)
[2025-06-25 05:39] LABS: Alanine Aminotransferase 15 IU/L (<35); Albumin 3.4 g/dL (3.5-5.0); Albumin Globulin Ratio 1.0 (1.0-2.8); Alkaline Phosphatase 189 U/L (38-126); Blood Urea Nitrogen 3 mg/dL (7-17); Calcium 9.1 mg/dL (8.4-10.2); Carbon Dioxide 22 mmol/L (22-32); Chloride 106 mmol/L (98-107); Estimated Glomerular Filt Rate > 60 mL/min (>60); Globulin 3.4 g/dL (1.7-4.1); Glucose 101 mg/dL (70-99); HEMOLYSIS < 15 (0-50); Potassium 3.6 mmol/L (3.4-5.1); Sodium 133 mmol/L (137-145); Total Protein 6.8 g/dL (6.3-8.2)
[2025-06-25 07:10] LABS: Protein (Total) Urine Random 279 mg/dL (0-12); Protein Creatinine Ratio Urine 11.42 GRAM/24H
--- NOTE | 2025-06-25 08:05 | PM.OBHP.IH.1 ---
OB HPI Date/Time Date of admission: 06/25/25 Date Patient Seen: 06/25/25 Time Patient Seen: 07:30 History of Present Condition Chief complaint: Labor KEI Calculator Estimated Delivery Date Method Current WG Current Estimate 07/17/25 LMP (Certain) 36w 6d : 1 Narrative: This is a 25 yo G1 at 36w6d here with SROM. No contractions. GBS negative. care: good care Dating criteria OB: LMP confirmed by 1st trimester US Ultrasounds: normal 1st trimester US and normal mid trimester US Obstetrical complications: other (chronic hypertension) Preadmission Labs Last OB Lab Results: Blood Type O Positive Today, 05:00 Antibody Screen Negative Today, 05:00 Hct, (36-46) 35.7 % L Today, 05:00 Hgb, (12.0-16.0) 11.8 g/dL L Today, 05:00 Hep Bs Antigen, (NEGATIVE) Negative s/c 12/14/24, 17:01 Hepatitis C Antibody, (NEGATIVE) Negative s/c 12/14/24, 17:01 Rubella Antibody, (>15) 9.8 IU/mL L 12/14/24, 17:01 VZV IgG Antibody, (Non Reactive) Non reactive 12/14/24, 17:01 Glucose 1 Hr 50 gm, (76-139) 104 mg/dL 04/12/25, 16:58 Hemoglobin A1c, (4.0-6.0) 5.0 % 12/14/24, 17:01 Group B Strep (PCR) Neg for grp b strep 06/17/25, 08:45 Glucose Tolerance Testin hr Genetic Screens: Cell-free DNA: Normal Evaluation Evaluation Baseline heart rate: 135 Variability: Moderate (6-25) monitor accelerations: Present Monitor Decelerations: Absent Category of Tracing: Reactive Status: Category l Dilation: 1-2 cm Effacement: 0-30% station: -3 Position of cervix: posterior Non-invasive Membranes Rupture Test: positive [facility] Medical History Hypertension affecting Closed head injury General counseling and advice for procreative management Surgical History Anesthesia [place] teeth removed (~03/2020) Family History Father Hypertension Hyperlipidemia Mother Diabetes mellitus Mental health problem Depression Anxiety Insomnia Grandmother Breast cancer Grandfather Cancer Grandfather Hypertension Brother Bipolar disorder Social History marital status: number of children: 0 household members: spouse lives independently: Yes caregiver/support person: No housing: house pets and animals: No education level: college occupational status: employed current occupational exposures/hazards: No special sharmaine needs: No travel history: recent seatbelt use: always helmet use: Yes water heater temp set < 120 deg: Yes working smoke detector in home: Yes fire extinguisher in home: Yes carbon monox detector in home: Yes firearms in home: No do you feel safe at home: Yes Smoking Status: Never smoker second hand exposure: No alcohol intake: former substance use type: marijuana during the past year weight has: increased > 10 lbs well-balanced diet: about half the time daily servings fruits/ve-4 caffeine: Yes (AM coffee or espresso, aware of 200mg limit) Type(s) of exercise: walking and weight lifting frequency: daily duration: 15-30 minutes/day Meds Home Medications and Allergies Home Medications ?Medication ?Instructions ?Recorded ?Confirmed ?Type vitamin-ferrous sulfate 1 tab PO DAILY 11/16/24 06/25/25 History 27 mg iron-folic acid 0.8 mg tablet doxylamine succinate 25 mg tablet 25 mg PO BEDTIME #30 tabs 12/07/24 06/25/25 Rx (Unisom (doxylamine)) ondansetron HCl 4 mg tablet 4 mg PO Q6H PRN nausea and 12/07/24 06/25/25 Rx Held on 06/25/25. vomiting #30 tabs Instructions: Change in level of care pyridoxine (vitamin B6) 25 mg 25 mg PO BID #60 tabs 12/07/24 06/25/25 Rx tablet sertraline 50 mg tablet 50 mg PO DAILY #90 tabs 05/23/25 06/25/25 Rx [id number] antigen-AS01E 0.5 ml IM ONCE #1 ea 05/25/25 06/25/25 Rx adjuvant(PF) 120 mcg/0.5 mL IM suspension, kit Held on 06/25/25. Instructions: Change in level of care nifedipine 30 mg tablet,extended 30 mg PO DAILY #90 tabs 06/09/25 06/25/25 Rx release fluconazole 150 mg tablet 150 mg PO Q3D 2 doses #2 tabs 06/17/25 06/25/25 Rx Held on 06/25/25. Instructions: Order Change Allergies Allergy/AdvReac Type Severity Reaction Status Date / Time No Known Drug Allergies Allergy Verified 06/25/25 05:02 Review of Systems Review of Systems ROS: Yes All systems reviewed with the patient and are negative except as otherwise documented Objective Labs 06/25/25 05:00 06/25/25 05:00 Labs: Laboratory Results - last 24 hr 06/25/25 05:00 WBC 9.1 RBC 4.68 Hgb 11.8 L Hct 35.7 L MCV 76.3 L MCH 25.2 L MCHC 33.1 RDW 16.0 H Plt Count 311 Neut % (Auto) 71.6 Lymph % (Auto) 22.1 L [place] % (Auto) 5.3 Eos % (Auto) 0.4 L Baso % (Auto) 0.6 Neut # (Auto) 6500 Lymph # (Auto) 2000 [place] # (Auto) 500 Eos # (Auto) 0 Baso # (Auto) 100 Sodium 133 L Potassium 3.6 Chloride 106 Carbon Dioxide 22 BUN 3 L Creatinine 0.48 L Estimated GFR > 60 BUN/Creatinine Ratio 6.3 Glucose 101 H Calcium 9.1 Total Bilirubin 0.3 AST 21 ALT 15 Alkaline Phosphatase 189 H Total Protein 6.8 Albumin 3.4 L Globulin 3.4 Albumin/Globulin Ratio 1.0 U Random Total Protein 279 H Urine Creatinine 24.43 Protein/Creatinin Ratio 11.42 Blood Type O Positive Antibody Screen Negative Assessment and Plan Assessment and Plan Assessment and Plan narrative: This is a 25 yo G1 at 36w6d here with SROM. No contractions on admission. GBS negative. complicated by CHTN on nifedipine, maternal obesity. SROM SVE 1-2 cm. No contractions. EFW 84th percentile. -Begin low dose pitocin. CHTN -continue nifedipine -CMP/CBC without signs of pre-e Rubella Non Immune -MMR Time-Based Coding :: 45 minutes spent with patient and on the chart (including review of chart, obtaining history, exam, reviewing outside data, placing orders, documenting exam and treatment plan, and counseling patient) on 06/25/2025.
--- NOTE | 2025-06-25 11:48 | PM.AN.REGBLK ---
Regional Block Pre-procedure Procedure: Continuous Lumbar Epidural for L&D Attending OB provider: Jane Landaverde PMH/ROS narrative: with gestational hypertension presents in labor, augmented with pitocin, requesting DEONDRE for labor pain. PSH/Anesthesia history narrative: [place] teeth without anesthetic complication. Exam narrative: See pre-anesthesia eval. ASA Class: II Labs: Hct 35.7 % (36-46) L 06/25/25 05:00 Plt Count 311 X10^3/uL (150-400) 06/25/25 05:00 Medications: Current Medications Generic Name Dose Route Start Last Admin Trade Name Freq PRN Reason Stop Dose Admin Calcium Carbonate 1,000 mg 06/25/25 04:32 Calcium Carbonate 500 Mg Tab PO Q2HR PRN Dyspepsia Carboprost Tromethamine 250 mcg 06/25/25 04:32 Carboprost 250 Mcg/Ml Ampul IM Q90M PRN Bleeding Fentanyl 50 mcg 06/25/25 04:32 Fentanyl 100 Mcg/2 Ml Inj IV Q1H PRN Pain, Moderate (4-6) Lactated Ringer's 1,000 mls @ 100 mls/hr 06/25/25 04:45 06/25/25 10:30 Lactated Ringers IV 06/25/25 14:44 100 mls/hr CONT ADELINE Administration Oxytocin/Lactated Ringer's 30 unit in 500 mls @ 200 mls/hr 06/25/25 04:32 Oxytocin Premix IV CONT PRN Bleeding Protocol Tranexamic Acid 1,000 mg/ 100 mls @ 600 mls/hr 06/25/25 04:32 Sodium Chloride IV NOW PRN Bleeding Oxytocin/Lactated Ringer's 30 unit in 500 mls @ 2 mls/hr 06/25/25 04:45 06/25/25 05:28 Oxytocin Premix IV 2 milliunit/min TITRATE ADELINE 2 mls/hr Protocol Administration 2 MILLIUNIT/MIN Lidocaine HCl 20 ml 06/25/25 04:32 Lidocaine 1% 20 Ml INJ INTRA-OP PRN Post Delivery Methylergonovine Maleate 0.2 mg 06/25/25 04:32 Methylergonovine 0.2 Mg Tablet PO Q6HR PRN Heavy Bleeding Methylergonovine Maleate 0.2 mg 06/25/25 04:32 Methylergonovine 0.2 Mg/Ml Vial IM NOW PRN Bleeding Mineral Oil 30 ml 06/25/25 04:32 Mineral Oil 30 Ml Udc TOP PRN PRN Version Misoprostol 800 mcg 06/25/25 04:32 Misoprostol 200 Mcg Tablet FL NOW PRN Bleeding Misoprostol 400 mcg 06/25/25 04:32 Misoprostol 200 Mcg Tablet SL NOW PRN Bleeding Naloxone HCl 0.2 mg 06/25/25 04:32 Naloxone 0.4 Mg/Ml Vial IV Q2MIN PRN Opiate Reversal Ondansetron HCl 4 mg 06/25/25 04:32 Ondansetron 4 Mg/2 Ml Inj IV Q4HR PRN Nausea And Vomiting Oxytocin 10 unit 06/25/25 04:32 Oxytocin 10 Unit/Ml Vial IM NOW PRN Bleeding Allergies: Allergies Allergy/AdvReac Type Severity Reaction Status Date / Time No Known Drug Allergies Allergy Verified 06/25/25 05:02 --: Technically challenging epidural placement due to poor rounding and deep epidural space. Multiple attempts at L3/4, L2/3, and finally at L4/5 with success. Clear SAMANTHA at 8cm, would have been hubbed if not for counterpressure on skin and adipose tissue. Initially c/o 7/10 contraction pain, 30 minutes after bolus rates pain with contractions as 0/10/ can only feel pressure with contractions and is comfortable. Procedure Insertion date: 06/25/25 Insertion time: 11:16 Prep/Local: 1% lidocaine (CHG to back) Interspace: L4/5 Patient position: sitting Needle: 17 gauge Tuohy Loss of resistance with: saline SAMANTHA at (cm): 8 (with skin tamped down) Catheter placed at SKIN (cm): 15 Catheter in SPACE (cm): 7 Insertion: No CSF, No Blood, No Paresthesia with insertion, No Paresthesia with injection and No Test dose reaction Initial Medications TEST DOSE time: 11:17 TEST DOSE: 1.5% lidocaine with epinephrine 1:200k (mL): 3 BOLUS DOSE time: 11:20 BOLUS DOSE (mL): 10 BOLUS DOSE med: 0.25% bupivacaine Infusion INFUSION: 0.125% bupivacaine and with fentanyl 2 mcg/mL Initial rate (mL/hr): 10 Post-procedure Anesthesia date START: 06/25/25 Anesthesia time START: 10:56
[2025-06-25] MEDS: LACTATED RINGERS 1,000 ML 999 ML IV (16:15)
[2025-06-25] MEDS: FENT 2MCG/ML BUPIV 0.125% EPI 200 MCG/100 ML PLAST..BAG 10 MCG EPIDURAL (16:20)
--- NOTE | 2025-06-25 21:34 | PM.OBPNLAB ---
Date/Time Date Patient Seen: 06/25/25 Time Patient Seen: 09:30 Pain Control Pain control: tolerating well and epidural Pelvic Exam Dilation (cm): 10 Effacement (%): 100 station: +2 Amniotic membrane status: Ruptured Contractions Contractions on admission: none Pitocin rate (mU/min): 11 Contraction frequency (min): 3 Contraction duration (min): 1 Contraction pattern: Irregular Contraction intensity: Strong/Firm Status status: Category l Heart Rate Baseline: 145 Monitor Accelerations: Present Monitor Decelerations: Episodic and Late Monitor Variability: Moderate Assessment and Plan Assessment: induction ongoing Plan: continuous present management Comments: This is a 25 yo G1 at 36w6d here with SROM. No contractions on admission. GBS negative. complicated by CHTN on nifedipine, maternal obesity. SROM EFW 84th percentile. -Pushing for 2 hours, making slow progress -Anticipate vaginal delivery CHTN -continue nifedipine -CMP/CBC without signs of pre-e Rubella Non Immune -MMR
--- NOTE | 2025-06-25 22:29 | PM.OBPRVD ---
Events: Labor < 37 wks, Labor Augmentation and Premature Rupture Membrane Labor & Delivery Delivery date: 06/25/25 Delivery Time: 09:59 Intrapartal Events: Prolonged 2nd Stage > 2.5 hours and Abnormal Presentation Cervical ripening method: none Induction method: per pitocin protocol Delivery augmentation: pitocin Delivery monitor: external FHT Route of delivery: L&D Laceration Description: Perineal - 2nd Degree and Vaginal - 1st Degree Delivery repair: vicryl Estimated blood loss (mL): 300 Anesthesia Type: Epidural Narrative: The patient progressed to C/C/+2 with pitocin augmentation and epidural anesthesia. After approximately 2.5 hour of maternal pushing efforts, the delivered in ROT position and restituted CHENCHO. The anterior shoulder delivered with gentle downward pressure. The posterior shoulder and rest of body delivered with ease. The cord was doubly clamped and cut after a 60sec delay with the handed to maternal abdomen. At 2 minutes of life baby was taken to the warmer for further assessment as heart rate was 100. The placenta delivered spontaneously and was intact with a 3-vessel cord. The fundus was noted to be firm with bimanual massage and pitocin. Inspection of the cervix, vagina, and perineum was notable for a 2nd degree laceration and a first degree left vaginal side wall. Repair was performed using 3-0 Vicryl in a running, locked fashion. Skin was reapproximated in a running, subcuticular fashion. At the end of the repair, all tissues noted to be hemostatic. All sponges were removed from the vagina. The patient tolerated delivery well and remained in the labor room with the at the bedside. Plan for aftercare: Routine care
[2025-06-25] MEDS: ePHEDrine 50 MG/ML VIAL 10 MG IV (23:03)
[2025-06-25] MEDS: DERMOPLAST SPRAY 20% 60 ML 1 SPRAY TOP (23:52)
[2025-06-25] MEDS: ACETAMINOPHEN 325 MG TABLET 650 MG PO (23:52)
[2025-06-25] MEDS: KETOROLAC 30 MG/ML VIAL IV (23:59)
[2025-06-26] MEDS: ACETAMINOPHEN 325 MG TABLET 650 MG PO ×3 (06:00→18:58)
[2025-06-26] MEDS: KETOROLAC 30 MG/ML VIAL IV ×3 (06:00→19:52)
[2025-06-26] MEDS: SERTRALINE 50 MG TABLET PO (08:46)
[2025-06-26] MEDS: FERROUS SULFATE 325 MG TABLET PO (08:46)
[2025-06-26] MEDS: PRENATAL VIT,CALC/IRON/FOLIC 1 TABLET 1 TAB PO (08:46)
[2025-06-26] MEDS: DOCUSATE 100 MG CAPSULE PO (08:46)
--- NOTE | 2025-06-26 09:53 | PM.OBPN.1 ---
Subjective - OB Subjective Patient comments: pain well controlled [place] baby status: doing well and bottle feeding well feeding status: exclusively bottle feeding Narrative: This is a 25 yo G1 now P1 who presented with PPROM at 36w6d. complicated by maternal obesity and CHTN on nifedipine. GBS negative. She had a last evening with 2.5 hr second stage with baby in ROT position. She had some low blood pressures following delivery and recieved ephedrine and fluids. Performed manual sweep to ensure no PPH with minimal clots. Gave 2g ancef for sweep. Blood pressure is still borderline low this AM 108/60. Will hold nifedipine this AM. She is pumping and feeding pumped milk and formula. Bleeding minimal. Some difficulty with ambulation due to low pressures. Date Patient Seen: 06/26/25 Exam Narrative Exam Narrative: NAD, skin to skin with Objective Labs 06/25/25 05:00 06/25/25 05:00 Assessment & Plan Plan day: 1 plan OB: routine care Comments: 25 yo G1 who delivered via at 36w6d. cHTN -hold nifedipine this AM for low BP -will give if pressures increase -routine care Time-Based Coding :: 30 minutes spent with patient and on the chart (including review of chart, obtaining history, exam, reviewing outside data, placing orders, documenting exam and treatment plan, and counseling patient) on 06/26/2025.
[2025-06-26 23:18] VITALS: BP 114/67; PULSE 78; RESP 20; TEMP 36.1; O2SAT 99
[2025-06-27] MEDS: ACETAMINOPHEN 325 MG TABLET 650 MG PO ×2 (02:04→08:38)
[2025-06-27] MEDS: IBUPROFEN 600 MG TABLET PO ×2 (02:04→08:38)
--- NOTE | 2025-06-27 07:48 | PM.OBDS.1 ---
Discharge Providers Provider Date of admission: 06/25/25 03:48 Discharge Date: 06/27/25 Primary care physician: Gabby Pearce DO Consults: 06/25/25 04:33 Consult to Anesthesiology Urgent Comment: Consulting Provider: Anesthesiologist Reason for consultation: Epidural 06/25/25 23:28 Consult to Profiler Operator Routine Comment: Discharge provider: Lenka Hercules MD Summary Hospital Course Date Patient Seen: 06/27/25 Hospital Course: This is a 25 yo G1 who presented at 36w6d with PPROM. complicated by obesity, cHTN. GBS negative. Patient progressed to complete with pitocin and epidural anesthesia. She pushed for 2.5 hrs as baby was ROT positioning. She had an with 2nd perineal laceration. She did not receive her nifedipine while in the hospital as she was symptomatically hypotensive on multiple occasions. She recovered well . Pain minimal. Pumping and bottle feeding. Will follow up with primary OB this week for chronic hypertension. Peripartum Data Infant Delivery Method: Natural Vaginal Laceration Description: Perineal - 2nd Degree Status at Discharge Cognitive/behavioral status at discharge: oriented Functional status at discharge: independent ambulation Overall status at discharge: patient is back to baseline Time Spent with Patient Time attestation: Total time spent providing and/or coordinating discharge services: 30 minutes Time spent: Greater than 30 minutes Objective Labs 06/25/25 05:00 06/25/25 05:00 Exam Narrative Exam Narrative: NAD, resting comfortably Discharge Plan Discharge Plan Patient Disposition: Home Discharge orders & Medications Prescriptions: New acetaminophen 325 mg Tablet 650 mg PO Q6H PRN (Reason: Pain, Mild (1-3)) Qty: 60 0RF docusate sodium 100 mg Capsule 100 mg PO DAILY Qty: 90 0RF ibuprofen 600 mg Tablet 600 mg PO Q6H Qty: 60 0RF Continued sertraline 50 mg tablet 50 mg PO DAILY Qty: 90 6RF nifedipine 30 mg tablet extended release 30 mg PO DAILY Qty: 90 3RF pyridoxine (vitamin B6) 25 mg tablet 25 mg PO BID Qty: 60 3RF Unisom (doxylamine) 25 mg tablet 25 mg PO BEDTIME Qty: 30 3RF ondansetron HCl 4 mg tablet 4 mg PO Q6H PRN (Reason: nausea and vomiting) Qty: 30 3RF vit-ferrous sulfat-FA 27 mg iron- 0.8 mg tablet 1 tab PO DAILY RSVPreF3 antigen-AS01E (PF) 120 mcg/0.5 mL suspension for reconstitution 0.5 ml IM ONCE Qty: 1 0RF fluconazole 150 mg tablet 150 mg PO Q3D Qty: 2 0RF Follow up/Referrals: Gabby Pearce DO [Primary Care Provider, Family Practice] Visit Report/Discharge Packet Stand Alone Forms: Patient Portal/API, Stroke Signs & Symptoms Discharge Data Primary Care Provider: Gabby Pearce Attending Provider: Lenka Hercules Admit Date/Time: 06/25/25 03:48
[2025-06-27] MEDS: PRENATAL VIT,CALC/IRON/FOLIC 1 TABLET 1 TAB PO (08:37)
[2025-06-27] MEDS: FERROUS SULFATE 325 MG TABLET PO (08:38)
[2025-06-27] MEDS: DOCUSATE 100 MG CAPSULE PO (08:38)
[2025-06-27] MEDS: SERTRALINE 50 MG TABLET PO (08:38)
[2025-06-27 10:30] VITALS: BP 106/53; PULSE 86; RESP 16; TEMP 36.9
== END 2025-06-27 10:55 | disposition home or self-care (01) | DRG 806 ==
PROVIDERS: Admitting Provider Student in an Organized Health Care Education/Training Program; PCP Family Medicine; Referring Provider Obstetrics & Gynecology; Visit Provider Student in an Organized Health Care Education/Training Program
DX: O42.013 Preterm premature rupture of membranes, onset of labor within 24 hours of rupture, third trimester (principal); O10.92 Unspecified pre-existing hypertension complicating childbirth; Z37.0 Single live birth; O63.1 Prolonged second stage (of labor); Z3A.36 36 weeks gestation of pregnancy; O99.214 Obesity complicating childbirth; O70.0 First degree perineal laceration during delivery; O70.1 Second degree perineal laceration during delivery; O76 Abnormality in fetal heart rate and rhythm complicating labor and delivery
CPT/HCPCS: 36415; 59050; 80053; 82570; 84112; 84156; 85025; 86850; 86900; 86901; G0379; J0687; J1885; J2590; J3010; J7050; J7120

== ENCOUNTER 2025-07-11 11:33 | Emergency (ER) | payer OTHER, SELFPAY ==
[2025-07-11] VITALS (9 sets, daily range): BP systolic 115–127; BP diastolic 59–82; PULSE 57–69; RESP 16–25; TEMP 37.1; O2SAT 96–100; BMI 42.3
--- NOTE | 2025-07-11 12:44 | DI.RAD.S_ITS ---
PROCEDURE: XR CHEST 1V INDICATIONS: chest TECHNIQUE: One view of the chest was acquired. COMPARISON: None. FINDINGS: Surgical changes and devices: None. Lungs and pleura: Lungs are clear. No pleural effusions or pneumothorax. Mediastinum: Mediastinal contours appear normal. Heart size is normal. Bones and chest wall: No suspicious bony lesions. Overlying soft tissues appear unremarkable. IMPRESSION: No acute cardiopulmonary abnormality is seen. Dictated by: Francis Jean M.D. on 07/11/2025 at 14:19 Approved by: Francis Jean M.D. on 07/11/2025 at 14:19
[2025-07-11 13:07] LABS: Add Manual Diff / Slide Review NO; Hematocrit 35.4 % (36-46); Hemoglobin 11.4 g/dL (12.0-16.0); Lymphocytes Absolute Auto 2700 /uL (1100-4500); Mean Corpuscular HGB Conc 32.3 % (30-36); Mean Corpuscular Hemoglobin 24.7 PG (26-34); Mean Corpuscular Volume 76.4 fL (80-100); Platelet Count 429 X10^3/uL (150-400)
[2025-07-11 13:09] LABS: Alanine Aminotransferase 32 IU/L (<35); Albumin 4.0 g/dL (3.5-5.0); Albumin Globulin Ratio 1.2 (1.0-2.8); Alkaline Phosphatase 111 U/L (38-126); Blood Urea Nitrogen 9 mg/dL (7-17); Calcium 9.5 mg/dL (8.4-10.2); Carbon Dioxide 25 mmol/L (22-32); Chloride 106 mmol/L (98-107); Estimated Glomerular Filt Rate > 60 mL/min (>60); Globulin 3.3 g/dL (1.7-4.1); Glucose 111 mg/dL (70-99); HEMOLYSIS 16 (0-50); Lipase 195 U/L (23-300); Magnesium 1.8 mg/dL (1.6-2.3); Potassium 3.8 mmol/L (3.4-5.1); Sodium 139 mmol/L (137-145); Total Protein 7.3 g/dL (6.3-8.2)
[2025-07-11 13:20] LABS: NT-proBNP (BNP-Adult 18+) < 20 pg/mL (<125); Troponin I < 0.012 ng/mL (0.01-0.034)
--- NOTE | 2025-07-11 13:33 | EKG_ITS ---
[facility] [address] [place] [id number] Test Date: 2025-07-11 Pat Name: Jane Miller Department: [facility] Room: Gender: Female Curam Developer: JOVITA : 2000 Requested By: Order Number: [id number] Reading MD: Reid Arana Measurements Intervals [place] Rate: 56 P: 46 MA: 144 QRS: -2 QRSD: 86 T: 20 QT: 416 QTc: 401 Interpretive Statements Sinus bradycardia Minimal voltage criteria for LVH, may be normal variant ( R in aVL ) Electronically Signed On 07-12-2025 18:17:37 PST by Reid Arana
--- NOTE | 2025-07-11 15:00 | ED.CHESTPAIN ---
HPI - Chest Pain General Chief Complaint: Chest Pain Stated Complaint: Chest pain Time Seen by Provider: 07/11/25 12:44 Source: patient Mode of arrival: Ambulatory Limitations: no limitations History of Present Illness HPI narrative: 25-year-old female patient, 1 para 1 who is 2 weeks status post at 36 6/7 EGA who had -induced hypertension and is on nifedipine PRN elevated blood pressure. She presents with sharp/pleuritic chest pain and shortness of breath starting 45 minutes prior to arrival, thus 10:45. Chest pain workup was initiated before my arrival including lab work, chest x-ray and EKG. On my initial evaluation, patient has no further chest pain Related Data Home Medications ?Medication ?Instructions ?Recorded ?Confirmed vitamin-ferrous sulfate 1 tab PO DAILY 11/16/24 06/25/25 27 mg iron-folic acid 0.8 mg tablet Previous Rx's ?Medication ?Instructions ?Recorded doxylamine succinate 25 mg tablet 25 mg PO BEDTIME #30 tabs 12/07/24 (Unisom (doxylamine)) ondansetron HCl 4 mg tablet 4 mg PO Q6H PRN nausea and 12/07/24 vomiting #30 tabs pyridoxine (vitamin B6) 25 mg 25 mg PO BID #60 tabs 12/07/24 tablet sertraline 50 mg tablet 50 mg PO DAILY #90 tabs 05/23/25 RSVPreF3 antigen-AS01E 0.5 ml IM ONCE #1 ea 05/25/25 adjuvant(PF) 120 mcg/0.5 mL IM suspension, kit nifedipine 30 mg tablet,extended 30 mg PO DAILY #90 tabs 06/09/25 release fluconazole 150 mg tablet 150 mg PO Q3D 2 doses #2 tabs 06/17/25 acetaminophen 325 mg tablet 650 mg (2 x 325 mg) PO Q6H PRN 06/27/25 Pain, Mild (1-3) #60 tabs docusate sodium 100 mg capsule 100 mg PO DAILY #90 caps 06/27/25 ibuprofen 600 mg tablet 600 mg PO Q6H #60 tabs 06/27/25 Allergies Allergy/AdvReac Type Severity Reaction Status Date / Time No Known Drug Allergies Allergy Verified 06/25/25 05:02 Review of Systems Review of Systems ROS Unobtainable: All systems reviewed & are unremarkable except as noted in HPI and below Cardiovascular Cardiovascular: Reports as per HPI Patient History Medical History Hypertension affecting Closed head injury General counseling and advice for procreative management Surgical History Anesthesia [place] teeth removed (~03/2020) Family History Father Hypertension Hyperlipidemia Mother Diabetes mellitus Mental health problem Depression Anxiety Insomnia Grandmother Breast cancer Grandfather Cancer Grandfather Hypertension Brother Bipolar disorder Social History marital status: number of children: 0 household members: spouse lives independently: Yes caregiver/support person: No housing: house pets and animals: No education level: college occupational status: employed current occupational exposures/hazards: No special sharmaine needs: No travel history: recent seatbelt use: always helmet use: Yes water heater temp set < 120 deg: Yes working smoke detector in home: Yes fire extinguisher in home: Yes carbon monox detector in home: Yes firearms in home: No do you feel safe at home: Yes Smoking Status: Never smoker second hand exposure: No alcohol intake: former substance use type: marijuana during the past year weight has: increased > 10 lbs well-balanced diet: about half the time daily servings fruits/ve-4 caffeine: Yes (AM coffee or espresso, aware of 200mg limit) Type(s) of exercise: walking and weight lifting frequency: daily duration: 15-30 minutes/day Smoking Status: Never smoker alcohol intake frequency: 0-2 drinks per day Exam Narrative Exam Narrative: General: Alert and conversant. No distress. Appears well nourished and well hydrated Neck: No tenderness or adenopathy. No meningismus. No JVD Lungs: Clear to auscultation with good air movement. No wheezing, rales or rhonchi. No respiratory distress Cardiac: Regular rate and rhythm with no appreciable murmur or gallop Abdomen: Soft, nontender with no distention or masses. Normal bowel sounds. No rebound or guarding Musculoskeletal: Exam of the extremities, axial spine and ribcage reveals no deformity, bony tenderness or swelling. Range of motion intact Neuro: Alert and oriented. Cranial nerves, motor, sensory and cerebellar all grossly intact. No focal deficit Skin: Warm and normal color. No rashes Psychological: Normal affect and interaction. No evidence of delusion or psychosis. Normal mood. Initial Vital Signs Initial Vital Signs: Vital Signs Temperature 98.7 F 07/11/25 11:55 Pulse Rate 65 07/11/25 11:55 Respiratory Rate 16 07/11/25 11:55 Blood Pressure 115/62 07/11/25 11:55 Pulse Oximetry 96 07/11/25 11:55 Oxygen Delivery Method Room Air 07/11/25 11:55 Course Orders Ordered: ED Orders 07/11/25 12:14 Complete Blood Count AUTO DIFF Stat Comprehensive Metabolic Panel Stat Lipase Stat Magnesium Stat NT-proBNP (BNP-Adult 18+) Stat Troponin I Stat 07/11/25 12:44 XR chest 1V Stat EKG-12 Lead Stat Vital Signs Vital signs: Vital Signs - 8 hr 07/11/25 14:30 07/11/25 14:30 07/11/25 15:00 Pulse Rate 69 61 Respiratory Rate 18 Blood Pressure 122/72 Pulse Oximetry 98 98 Oxygen Delivery Method 07/11/25 15:00 07/11/25 16:20 Pulse Rate 60 Respiratory Rate 17 Blood Pressure 125/69 125/82 Pulse Oximetry 98 Oxygen Delivery Method Room Air MDM - Chest Pain Differential Diagnosis Differential diagnosis: Likely unstable angina pectoris, atypical chest pain, costochondritis and chest pain Medical Records Data Attestation: I reviewed the patient's medical records. Lab Data Attestation: I reviewed the patient's lab results. Lab results narrative: Unremarkable CBC, CMP and troponins 07/11/25 12:14 07/11/25 12:14 Labs: Lab Results 07/11/25 Range/Units 12:14 WBC 7.4 (4.5-11.0) X10^3/uL RBC 4.63 (4.0-5.2) X10^6/uL Hgb 11.4 L (12.0-16.0) g/dL Hct 35.4 L (36-46) % MCV 76.4 L (80-100) fL MCH 24.7 L (26-34) PG MCHC 32.3 (30-36) % RDW 16.4 H (11.6-14.8) % Plt Count 429 H (150-400) X10^3/uL Neut % (Auto) 56.0 (50-75) % Lymph % (Auto) 37.0 (25-40) % Pine % (Auto) 5.0 (3-14) % Eos % (Auto) 1.1 L (2-4) % Baso % (Auto) 0.9 (0-2) % Neut # (Auto) 4200 (2968-7278) /uL Lymph # (Auto) 2700 (5789-2109) /uL Pine # (Auto) 400 (0-900) /uL Eos # (Auto) 100 (0-450) /uL Baso # (Auto) 100 (0-100) /uL Sodium 139 (137-145) mmol/L Potassium 3.8 (3.4-5.1) mmol/L Chloride 106 (98-107) mmol/L Carbon Dioxide 25 (22-32) mmol/L BUN 9 (7-17) mg/dL Creatinine 0.74 (0.52-1.04) mg/dL Estimated GFR > 60 (>60) mL/min BUN/Creatinine Ratio 12.2 (6-22) Glucose 111 H (70-99) mg/dL Calcium 9.5 (8.4-10.2) mg/dL Magnesium 1.8 (1.6-2.3) mg/dL Total Bilirubin 0.3 (0.2-1.3) mg/dL AST 66 H (14-36) IU/L ALT 32 (<35) IU/L Alkaline Phosphatase 111 (38-126) U/L Troponin I < 0.012 (0.01-0.034) ng/mL NT-Pro-B Natriuret Pep < 20 (<125) pg/mL Total Protein 7.3 (6.3-8.2) g/dL Albumin 4.0 (3.5-5.0) g/dL Globulin 3.3 (1.7-4.1) g/dL Albumin/Globulin Ratio 1.2 (1.0-2.8) Lipase 195 (23-300) U/L Imaging Data Chest x-ray: Attestation: I personally reviewed and interpreted this imaging study as follows: My Impression: Unremarkable. No acute disease ECG Data Attestation: I personally reviewed and interpreted this ECG as follows: (Mild sinus bradycardia with a rate of 56. Normal axis and intervals. No ischemic changes.) MDM Narrative Medical decision making narrative: Patient had transient pleuritic type chest pain which is now resolved. Her workup including chest x-ray, EKG and lab work is all unremarkable and reassuring. This is possibly stress or anxiety related but also appears to be pleuritic and improved. I do not believe she needs further workup in the ER. She was given reassurance and instructions to monitor symptoms and follow up with her doctor. Return to the ER if worse. Discharge Plan Departure Patient Disposition: Home Clinical Impression: Atypical chest pain Instructions: DI for Atypical Chest Pain Activity Restrictions/Additional Instructions: Assessment: Transient pleuritic type chest pain which does not appear to be cardiac or pulmonary. Emergency tests including EKG, chest x-ray and cardiac labs are all negative and reassuring. Plan: Continue with care and monitor symptoms. Follow up with your provider. Return to the ER if worse Prescriptions: No Action sertraline 50 mg tablet 50 mg PO DAILY Qty: 90 6RF nifedipine 30 mg tablet extended release 30 mg PO DAILY Qty: 90 3RF pyridoxine (vitamin B6) 25 mg tablet 25 mg PO BID Qty: 60 3RF Unisom (doxylamine) 25 mg tablet 25 mg PO BEDTIME Qty: 30 3RF ondansetron HCl 4 mg tablet 4 mg PO Q6H PRN (Reason: nausea and vomiting) Qty: 30 3RF vit-ferrous sulfat-FA 27 mg iron- 0.8 mg tablet 1 tab PO DAILY RSVPreF3 antigen-AS01E (PF) 120 mcg/0.5 mL suspension for reconstitution 0.5 ml IM ONCE Qty: 1 0RF fluconazole 150 mg tablet 150 mg PO Q3D Qty: 2 0RF acetaminophen 325 mg Tablet 650 mg PO Q6H PRN (Reason: Pain, Mild (1-3)) Qty: 60 0RF docusate sodium 100 mg Capsule 100 mg PO DAILY Qty: 90 0RF ibuprofen 600 mg Tablet 600 mg PO Q6H Qty: 60 0RF Referrals: Gabby Pearce DO [Primary Care Provider, Family Practice] Stand Alone Forms: Patient Portal/API
== END 2025-07-11 16:22 | disposition home or self-care (01) ==
PROVIDERS: Emergency Medicine; Emergency Provider Emergency Medicine; PCP Family Medicine
DX: R07.89 Other chest pain (principal); R06.02 Shortness of breath
CPT/HCPCS: 36415; 71045; 80053; 83690; 83735; 83880; 84484; 85025; 93005; 99283; 99284